=== PATIENT | male | born 1970 | race Caucasian/White ===

== ENCOUNTER 2019-10-17 07:10 | Outpatient (CLI) | payer OTHER, SELFPAY ==
[2019-10-17 07:40] LABS: Basophils Absolute Auto 0.1 K/mm3 (0.0-0.1); Basophils Percent Auto 0.8 % (0.2-1.2); Eosinophils Absolute Auto 0.3 K/mm3 (0-0.3); Eosinophils Percent Auto 3.7 % (0-4.4); Hematocrit 43.8 % (42.0-52.0); Hemoglobin 15.4 g/dL (14.0-18.0); Immature Granulocyte Absolute 0.06 K/mm3 (0.00-0.031); Immature Granulocyte Percent A 0.7 % (0-0.5); Lymphocytes Absolute Auto 2.06 K/mm3 (0.9-3.2); Lymphocytes Percent Auto 23.3 % (18.3-44.2); Mean Corpuscular HGB Conc 35.2 g/dl (32-36); Mean Corpuscular Hemoglobin 32.6 pg (26-34); Mean Corpuscular Volume 92.6 fl (80-100); Mean Platelet Volume 9.3 fl (7.4-10.4); Monocytes Absolute Auto 0.8 K/mm3 (0.1-0.6); Monocytes Percent Auto 8.7 % (2.6-8.5); Neutrophils Absolute Auto 5.6 K/mm3 (1.3-6.7); Neutrophils Percent Auto 62.8 % (45.5-73.1); Platelet Count Result 238 k/mm3 (150-375); Red Blood Count 4.73 M/mm3 (4.6-6.20); Red Cell Distribution Width 13.2 % (11.5-14.5); White Blood Count 8.9 K/mm3 (4.5-10.0)
[2019-10-17 07:55] LABS: Hemoglobin A1C 5.6 % (<5.7)
[2019-10-17 07:56] LABS: Cholesterol 204 mg/dL (0-200); HDL Direct 53 mg/dL; Triglycerides 220 mg/dL (<150)
[2019-10-17 08:07] LABS: LDL Cholesterol Direct 113 mg/dL
== END 2019-10-17 07:11 | disposition home or self-care (01) ==
PROVIDERS: PCP Family Medicine; Visit Provider Family Medicine
DX: R73.09 Other abnormal glucose (principal); E78.2 Mixed hyperlipidemia; I10 Essential (primary) hypertension; F33.2 Major depressive disorder, recurrent severe without psychotic features; F41.1 Generalized anxiety disorder
CPT/HCPCS: 36415; 80061; 83036; 84443; 85025

== ENCOUNTER 2020-09-05 07:15 | Outpatient (CLI) | payer OTHER, SELFPAY ==
[2020-09-05 12:17] LABS: Alanine Aminotransferase 27 U/L (4-50); Alkaline Phosphatase 69 U/L (38-126); Anion Gap 10 mmol/L (8-16); Aspartate Amino Transferase 23 U/L (17-59); Bilirubin,Total 0.4 mg/dL (0.2-1.3); Blood Urea Nitrogen 15 mg/dL (9-20); Calcium 9.8 mg/dL (8.4-10.2); Carbon Dioxide 24 mmol/L (22-30); Chloride 104 mmol/L (98-107); Cholesterol 210 mg/dL (0-200); Estimated Glomerular Filt Rate > 60; Glucose 129 mg/dL (65-110); HDL Direct 42 mg/dL; Potassium 4.4 mmol/L (3.4-5.0); Sodium 138 mmol/L (137-145); Triglycerides 198 mg/dL (<150)
[2020-09-05 12:28] LABS: LDL Cholesterol Direct 113 mg/dL
== END 2020-09-05 07:16 | disposition home or self-care (01) ==
PROVIDERS: PCP Family Medicine; Visit Provider Family Medicine
DX: E78.2 Mixed hyperlipidemia (principal); I10 Essential (primary) hypertension
CPT/HCPCS: 36415; 80053; 80061

== ENCOUNTER 2020-10-14 00:33 | Day surgery (SDC) | payer OTHER, SELFPAY ==
[2020-10-11 11:06] VITALS: BMI 34.2
[2020-10-14 06:46] VITALS: BP 129/88; PULSE 79; RESP 18; TEMP 36.2; O2SAT 95; BMI 33.3
[2020-10-14] MEDS: LACTATED RINGERS 1,000 ML 150 ML IV CONT (06:52)
--- NOTE | 2020-10-14 07:58 | WPDANESEPPF ---
Anes - Initial Pre Proc Eval Procedure: Operation Date: 10/14/20 08:00 Proposed Procedures p Screening Colonoscopy - Shankar Blue MD Date/Time: 10/14/20 07:58 Surgeon: Shankar Blue MD Pre Op Diagnosis: neoplasm screening Patient Data Age: 50 Gender: M Height: 1.7 m Weight: 96.7 kg Last Vital Signs Temp 97.1 F L 10/14/20 06:46 Pulse 79 10/14/20 06:46 Resp 18 10/14/20 06:46 BP 129/88 10/14/20 06:46 Pulse Ox 95 10/14/20 06:46 Allergies Allergy/AdvReac Type Severity Reaction Status Date / Time No Known Allergies Allergy Verified 10/14/20 06:44 Home Medications Medication Instructions Recorded Confirmed Type clobetasol 0.05 % scalp solution 1 applic TOPICAL BID PRN 01/19/19 10/11/20 History hydrochlorothiazide 12.5 mg tablet 12.5 mg PO DAILY #90 tablet 10/06/20 10/11/20 Rx lisinopril 20 mg tablet 20 mg PO DAILY #90 tablet 10/06/20 10/11/20 Rx rosuvastatin 10 mg tablet 10 mg PO DAILY #30 tablet 10/06/20 10/11/20 Rx Patient hx anesthesia problems: none Family hx anesthesia problems: none PMFSH Past Medical History Medical History Alcohol abuse Benign essential HTN Closed fracture of forearm with routine healing Episodic tobacco abuse Fracture of face bones due to fall with routine healing Fracture of phalanx of right thumb with routine healing ALBERTO (generalized anxiety disorder) Major depressive disorder, recurrent severe without psychotic features Mixed hyperlipidemia Tobacco abuse Family History Family History Mother Family history of kidney disease Family history of chronic obstructive pulmonary disease Family history of diabetes mellitus in first degree relative Father Family history of lung cancer Other Diabetes mellitus Hypertension Social History Social History (Updated 10/06/20 @ 16:27 by Sonia Mckee) Social History: Smoking packs per day: 0.5 Smoking cigarettes per day: 10.0 Years smoked: 30 Smoking pack-years: 15.00 Smoking status: Current every day smoker Tobacco type: cigarettes Second hand tobacco smoke exposure: No Alcohol intake: current Drinks per week: 24 Substance use: never Substance use type: does not use Living arrangements: with family Gender identity (if verbalized by the patient): Male Sexual Orientation (if Verbalized by the Patient): Straight or Heterosexual Spiritual care concerns: No Anes - Eval Final PreProcedure Day of Procedure 10/14/20 07:58 Patient weight: obese Heart: regular rate and rhythm Lungs: clear to auscultation Airway: Mallampati scale class II Neurological: alert and oriented Last oral intake: >/= 8 hours ASA classification: III Emergent: no Anesthetic plan: proceed Anesthesia type and monitoring: general GIVS and standard monitoring Informed Consent: The patient's anesthetic plan and its attendant risks and benefits were discussed with the patient/family/POA. Questions were solicited and answers provided to the satisfaction of the patient/family/POA.
--- NOTE | 2020-10-14 07:58 | PM.HPGS ---
History of Present Illness History of Present Illness Consent: Risks, benefits, and alternatives have been discussed and questions answered. Patient agrees to proceed with procedure. Chief complaint: neoplasm screening Narrative: Tulio Etienne is a 50 year old male here for first screening colonoscopy Review of Systems Constitutional: Constitutional: Denies headache(s) and Denies weakness Eyes: Eyes: Denies blurry vision ENT: Reports Normal hearing present, Denies headache(s) and Denies neck pain Cardiovascular: Cardiovascular: Denies chest pain and Denies dyspnea Respiratory: Respiratory: Denies dyspnea Gastrointestinal: Gastrointestinal: Reports no additional gastrointestinal complaints Genitourinary: Genitourinary: Denies dysuria Musculoskeletal: Musculoskeletal: Denies neck pain Integumentary/Breasts: Skin/Breast: Denies dry skin Neurologic: Reports Normal hearing present, Denies headache(s) and Denies weakness Psychiatric: Psychiatric: Denies anxiety Endocrine: Endocrine: Denies change in body appearance Hematologic/Lymphatic: Hematologic/Lymphatic: Denies easy bleeding Allergic/Immunologic: Allergic/Immunologic: Denies urticaria PMFSH Past Medical History Medical History Alcohol abuse Benign essential HTN Closed fracture of forearm with routine healing Episodic tobacco abuse Fracture of face bones due to fall with routine healing Fracture of phalanx of right thumb with routine healing ALBERTO (generalized anxiety disorder) Major depressive disorder, recurrent severe without psychotic features Mixed hyperlipidemia Tobacco abuse Family History Family History Mother Family history of kidney disease Family history of chronic obstructive pulmonary disease Family history of diabetes mellitus in first degree relative Father Family history of lung cancer Other Diabetes mellitus Hypertension Social History Social History (Updated 10/06/20 @ 16:27 by Sonia Mckee) Social History: Smoking packs per day: 0.5 Smoking cigarettes per day: 10.0 Years smoked: 30 Smoking pack-years: 15.00 Smoking status: Current every day smoker Tobacco type: cigarettes Second hand tobacco smoke exposure: No Alcohol intake: current Drinks per week: 24 Substance use: never Substance use type: does not use Living arrangements: with family Gender identity (if verbalized by the patient): Male Sexual Orientation (if Verbalized by the Patient): Straight or Heterosexual Spiritual care concerns: No Meds Home Medications and Allergies Home Medications Medication Instructions Recorded Confirmed Type clobetasol 0.05 % scalp solution 1 applic TOPICAL BID PRN 01/19/19 10/11/20 History hydrochlorothiazide 12.5 mg tablet 12.5 mg PO DAILY #90 tablet 10/06/20 10/11/20 Rx lisinopril 20 mg tablet 20 mg PO DAILY #90 tablet 10/06/20 10/11/20 Rx rosuvastatin 10 mg tablet 10 mg PO DAILY #30 tablet 10/06/20 10/11/20 Rx Allergies Allergy/AdvReac Type Severity Reaction Status Date / Time No Known Allergies Allergy Verified 10/14/20 06:44 Vital Signs Vital Signs - 24 hr 10/14/20 06:46 Temperature 97.1 F L Pulse Rate 79 Respiratory Rate 18 Blood Pressure 129/88 Pulse Oximetry 95 Exam Const: General: comfortable and no acute distress HENMT: General nose exam: Normal nares present Eyes: General: appearance normal, both eyes and all related structures Neck: Neck: no JVD Resp: Auscultation: clear to auscultation bilaterally Cardio: Rate: regular rate Rhythm: regular rhythm GI: Inspection: non-distended GI Palp: Yes Soft to palpation Skin: General skin exam: normal color Neuro: General: gait normal Speech: normal speech Extrem: General: normal to inspection Psych: Mental Status: mental status grossly normal Assessment and Plan Assessment
[2020-10-14 08:32] VITALS: BP 85/54; PULSE 59; RESP 17; O2SAT 93
[2020-10-14 08:42] VITALS: BP 89/54; PULSE 55; RESP 20; O2SAT 95
[2020-10-14 08:52] VITALS: BP 140/90; PULSE 53; RESP 24; O2SAT 98
[2020-10-14 09:00] VITALS: BP 119/73
== END 2020-10-14 09:10 | disposition home or self-care (01) ==
PROVIDERS: PCP Family Medicine; Visit Provider Internal Medicine Gastroenterology
PROC: 0DJD8ZZ Inspection of Lower Intestinal Tract, Via Natural or Artificial Opening Endoscopic (ICD-10-PCS; CPT 45378; principal; 2020-10-14 08:00)
DX: Z12.11 Encounter for screening for malignant neoplasm of colon (principal); D12.5 Benign neoplasm of sigmoid colon; D12.3 Benign neoplasm of transverse colon; K63.5 Polyp of colon; K57.30 Diverticulosis of large intestine without perforation or abscess without bleeding; K64.8 Other hemorrhoids; I10 Essential (primary) hypertension; E78.2 Mixed hyperlipidemia; F10.10 Alcohol abuse, uncomplicated; F17.210 Nicotine dependence, cigarettes, uncomplicated; F41.1 Generalized anxiety disorder; F32.9 Major depressive disorder, single episode, unspecified
CPT/HCPCS: 45385; 45381; 88305; J2704; J7120

== ENCOUNTER 2021-04-26 07:22 | Outpatient (CLI) | payer OTHER, SELFPAY ==
[2021-04-26 07:44] LABS: Basophils Absolute Auto 0.1 K/mm3 (0.0-0.1); Basophils Percent Auto 0.9 % (0.2-1.2); Eosinophils Absolute Auto 0.4 K/mm3 (0-0.3); Eosinophils Percent Auto 3.7 % (0-4.4); Hematocrit 42.9 % (42.0-52.0); Hemoglobin 14.9 g/dL (14.0-18.0); Lymphocytes Absolute Auto 2.99 K/mm3 (0.9-3.2); Lymphocytes Percent Auto 30.1 % (18.3-44.2); Mean Corpuscular HGB Conc 34.7 g/dl (32-36); Mean Corpuscular Hemoglobin 32.4 pg (26-34); Mean Corpuscular Volume 93.3 fl (80-100); Monocytes Absolute Auto 0.9 K/mm3 (0.1-0.6); Monocytes Percent Auto 8.8 % (2.6-8.5); Neutrophils Absolute Auto 5.5 K/mm3 (1.3-6.7); Neutrophils Percent Auto 55.5 % (45.5-73.1); Platelet Count Result 249 k/mm3 (150-375); Red Cell Distribution Width 13.1 % (11.5-14.5); White Blood Count 9.9 K/mm3 (4.5-10.0)
[2021-04-26 08:06] LABS: LDL Cholesterol Direct 117 mg/dL
[2021-04-26 08:26] LABS: Prostate Specific Antigen 1.2 ng/mL (< OR = 4.0)
[2021-04-26 08:30] LABS: Alanine Aminotransferase 30 U/L (4-50); Albumin Level 4.4 g/dL (3.5-5.1); Alkaline Phosphatase 74 U/L (38-126); Anion Gap 8 mmol/L (8-16); Aspartate Amino Transferase 28 U/L (17-59); Bilirubin,Total 0.4 mg/dL (0.2-1.3); Blood Urea Nitrogen 13 mg/dL (9-20); Calcium 8.9 mg/dL (8.4-10.2); Carbon Dioxide 24 mmol/L (22-30); Chloride 104 mmol/L (98-107); Cholesterol 247 mg/dL (0-200); Estimated Glomerular Filt Rate > 60; Glucose 152 mg/dL (65-110); Potassium 4.8 mmol/L (3.4-5.0); Sodium 136 mmol/L (137-145)
[2021-04-26 08:40] LABS: Triglycerides 638 mg/dL (<150)
== END 2021-04-26 07:23 | disposition home or self-care (01) ==
PROVIDERS: PCP Family Medicine; Visit Provider Nurse Practitioner Gerontology
DX: E78.2 Mixed hyperlipidemia (principal); I10 Essential (primary) hypertension; Z12.5 Encounter for screening for malignant neoplasm of prostate
CPT/HCPCS: 36415; 80053; 80061; 84153; 85025; G0103

== ENCOUNTER 2021-10-16 15:15 | Emergency (ER) | payer OTHER, SELFPAY ==
--- NOTE | 2021-10-16 15:17 | ED.EXTPRO ---
HPI - Extremity Problem General Chief complaint: Extremity Problem,Nontraumatic Stated complaint: swollen rt arm Time Seen by Provider: 10/16/21 15:17 Source: patient Mode of arrival: ambulatory Limitations: no limitations History of Present Illness HPI Narrative: Mr. Hart is a 51-year-old male patient presenting to the clinic today with complaints of right arm swelling x1 day. He reports that he was doing some ceiling finishing and a board fell down with 2 nails in it and stabbed his left forearm. He has 2 puncture wounds to the left forearm that are scabbed over and has surrounding redness and swelling to these areas. Last tetanus shot was in 2012 Related Data Home Medications Medication Instructions Recorded Confirmed rosuvastatin 10 mg tablet 10 mg PO DAILY 10/16/21 10/16/21 Allergies Allergy/AdvReac Type Severity Reaction Status Date / Time No Known Allergies Allergy Verified 10/16/21 15:19 Review of Systems Review of Systems: Pertinent positives per HPI. Patient denies any fever, chills, rash, headache, visual changes, dizziness, cough, runny nose, sore throat, shortness of breath, chest pain, palpitations, nausea, vomiting, diarrhea, constipation, abdominal pain, or any urinary issues. [facility] Past Medical History Medical History (Updated 10/16/21 @ 15:31 by Garrick Kelsey APRN) Alcohol abuse Benign essential HTN Closed fracture of forearm with routine healing Episodic tobacco abuse Fracture of face bones due to fall with routine healing Fracture of phalanx of right thumb with routine healing ALBERTO (generalized anxiety disorder) Major depressive disorder, recurrent severe without psychotic features Mixed hyperlipidemia Tobacco abuse Family History Family History Mother Family history of kidney disease Family history of chronic obstructive pulmonary disease Family history of diabetes mellitus in first degree relative Father Family history of lung cancer Other Diabetes mellitus Hypertension Social History Social History Social History: Smoking packs per day: 0.25 Smoking cigarettes per day: 5.0 Years smoked: 30 Smoking pack-years: 7.50 Smoking status: Current every day smoker Tobacco type: cigarettes Second hand tobacco smoke exposure: No Alcohol intake: current Drinks per week: 6 Substance use: never Substance use type: does not use Gender identity (if verbalized by the patient): Male Sexual Orientation (if Verbalized by the Patient): Straight or Heterosexual Spiritual care concerns: No Comments At the time of my signature, I reviewed and agree with the nursing past medical, surgical, social, and family history. There is no relevant family history pertinent to the patient complaint. Exam Narrative: General: Well-developed, well nourished, in no apparent distress Head: Normocephalic, atraumatic. Cardio: Regular rate and rhythm, s1 and s2 normal, no murmur appreciated. Resp: Diminished lung sounds in the bases otherwise clear to auscultation bilaterally, no rhonchi, rales, wheezing or rubs. Integumentary: [place], warm, and dry, 2 scabbed over infected puncture wounds to the right lateral forearm with redness and swelling without palpable abscess. No drainage noted Course Course Emergency Course: Portions of this record may have been created with voice recognition software. Level of Care: Express Care Visit Vital Signs Vital signs: Vital signs reviewed MDM - Extremity (Nontraumatic) MDM Narrative Medical decision making narrative: At the time of visit patient is resting comfortably on the exam table. Patient has 2 infected puncture wounds to the right forearm. Prescription for doxycycline sent to the pharmacy and tetanus was updated in the clinic today. Supportive measures were discussed with the patient he
[2021-10-16 15:26] VITALS: BP 136/105; PULSE 90; RESP 18; TEMP 36.7; O2SAT 97
[2021-10-16] MEDS: TETANUS,DIPHTHERIA,AC PERTUSSIS ADULT (0.5 ML) BOOSTRIX IM (15:36)
== END 2021-10-16 15:38 | disposition home or self-care (01) ==
PROVIDERS: Emergency Provider Nurse Practitioner Family; PCP Family Medicine
DX: S51.832A Puncture wound without foreign body of left forearm, initial encounter (principal); L08.9 Local infection of the skin and subcutaneous tissue, unspecified; W45.0XXA Nail entering through skin, initial encounter; Z23 Encounter for immunization; F17.210 Nicotine dependence, cigarettes, uncomplicated; I10 Essential (primary) hypertension; E78.2 Mixed hyperlipidemia
CPT/HCPCS: 90471; 90715; 99213; G0463

== ENCOUNTER 2022-06-09 07:19 | Outpatient (CLI) | payer OTHER, SELFPAY ==
[2022-06-09 08:00] LABS: Basophils Absolute Auto 0.1 K/mm3 (0.0-0.1); Basophils Percent Auto 0.9 % (0.2-1.2); Eosinophils Absolute Auto 0.3 K/mm3 (0-0.3); Eosinophils Percent Auto 3.8 % (0-4.4); Hemoglobin 14.1 g/dL (14.0-18.0); Immature Granulocyte Absolute 0.06 K/mm3 (0.00-0.031); Immature Granulocyte Percent A 0.8 % (0-0.5); Lymphocytes Absolute Auto 2.39 K/mm3 (0.9-3.2); Lymphocytes Percent Auto 30.4 % (18.3-44.2); Mean Corpuscular HGB Conc 33.6 g/dl (32-36); Mean Corpuscular Hemoglobin 30.7 pg (26-34); Mean Corpuscular Volume 91.5 fl (80-100); Mean Platelet Volume 9.9 fl (7.4-10.4); Monocytes Absolute Auto 0.6 K/mm3 (0.1-0.6); Monocytes Percent Auto 8.1 % (2.6-8.5); Neutrophils Absolute Auto 4.4 K/mm3 (1.3-6.7); Platelet Count Result 234 k/mm3 (150-375); Red Blood Count 4.59 M/mm3 (4.6-6.20); Red Cell Distribution Width 13.1 % (11.5-14.5); White Blood Count 7.9 K/mm3 (4.5-10.0)
[2022-06-09 08:13] LABS: Alanine Aminotransferase 37 U/L (6-50); Albumin Level 4.6 g/dL (3.5-5.1); Alkaline Phosphatase 63 U/L (38-126); Anion Gap 8 mmol/L (8-16); Aspartate Amino Transferase 26 U/L (17-59); Bilirubin,Total 0.5 mg/dL (0.2-1.3); Blood Urea Nitrogen 13 mg/dL (9-20); Calcium 9.4 mg/dL (8.4-10.2); Carbon Dioxide 26 mmol/L (22-30); Chloride 102 mmol/L (98-107); Cholesterol 206 mg/dL (0-200); Estimated Glomerular Filt Rate > 60; Glucose 157 mg/dL (65-110); Potassium 4.4 mmol/L (3.4-5.0); Sodium 136 mmol/L (137-145)
[2022-06-09 08:22] LABS: LDL Cholesterol Direct 87 mg/dL
[2022-06-09 08:44] LABS: Triglycerides 606 mg/dL (<150)
== END 2022-06-09 07:20 | disposition home or self-care (01) ==
LOC: ANHLAB 07:20
PROVIDERS: PCP Family Medicine; Visit Provider Nurse Practitioner Gerontology
DX: E78.2 Mixed hyperlipidemia (principal); I10 Essential (primary) hypertension
CPT/HCPCS: 36415; 80053; 80061; 83036; 85025

== ENCOUNTER 2022-09-22 07:08 | Outpatient (CLI) | payer OTHER, SELFPAY ==
[2022-09-22 08:38] LABS: Hemoglobin A1C 7.3 % (<5.7)
== END 2022-09-22 07:09 | disposition home or self-care (01) ==
LOC: ANHLAB 07:09
PROVIDERS: PCP Family Medicine; Visit Provider Physician Assistant
DX: E11.9 Type 2 diabetes mellitus without complications (principal)
CPT/HCPCS: 36415; 83036

== ENCOUNTER 2022-10-19 16:53 | Emergency (ER) | payer OTHER, SELFPAY ==
[2022-10-19 17:03] VITALS: BP 141/90; PULSE 95; RESP 18; TEMP 37; O2SAT 97
--- NOTE | 2022-10-19 17:03 | ED.GENADULT ---
HPI - General Adult General Chief complaint: Eye Problems Stated complaint: RT Eye Irritation Time Seen by Provider: 10/19/22 17:03 Source: patient, RN notes reviewed and old records reviewed Mode of arrival: ambulatory Limitations: no limitations History of Present Illness HPI narrative: 52-year-old male presents to the [facility] with complaints of right lower eyelid irritation for approximately 1 week. States that he was not tested floor last week. Develops on Saturday some itching and some inflammation. No treatment prior to arrival. Denies any trauma. Denies any discharge. No crusting. Denies any change in vision Onset (ago): week(s) (1) Related Data Allergies Allergy/AdvReac Type Severity Reaction Status Date / Time No Known Allergies Allergy Verified 10/19/22 17:00 Review of Systems Review of Systems: All systems reviewed & are unremarkable except as noted in HPI and below Constitutional: Constitutional: Reports no additional constitutional complaints Eyes: Eyes: Reports as per HPI ENT: Reports system reviewed and no additional complaints, except as documented Cardiovascular: Cardiovascular: Reports no additional cardiovascular complaints, Denies chest pain and Denies dyspnea Respiratory: Respiratory: Reports no additional respiratory complaints, Denies chest congestion, Denies cough and Denies dyspnea Gastrointestinal: Gastrointestinal: Reports no additional gastrointestinal complaints, Denies abdominal pain, Denies nausea and Denies vomiting Musculoskeletal: Musculoskeletal: Reports no additional musculoskeletal complaints Integumentary/Breasts: Skin/Breast: Reports system reviewed and no additional complaints, except as docu Neurologic: Reports system reviewed and no additional complaints, except as documented Psychiatric: Psychiatric: Reports no additional psychiatric complaints Allergic/Immunologic: Allergic/Immunologic: Reports no additional allergic/immunologic complaints [facility] Past Medical History Medical History (Updated 10/20/22 @ 17:29 by Felisa Avitia APRN) Alcohol abuse Benign essential HTN Closed fracture of forearm with routine healing Episodic tobacco abuse Fracture of face bones due to fall with routine healing Fracture of phalanx of right thumb with routine healing ALBERTO (generalized anxiety disorder) Major depressive disorder, recurrent severe without psychotic features Mixed hyperlipidemia New onset type 2 diabetes mellitus Tobacco abuse Family History Family History Mother Family history of kidney disease Family history of chronic obstructive pulmonary disease Family history of diabetes mellitus in first degree relative Father Family history of lung cancer Other Diabetes mellitus Hypertension Social History Social History (Updated 09/27/22 @ 16:24 by Sonia Mckee) Social History: Smoking packs per day: 0.25 Smoking cigarettes per day: 5.0 Years smoked: 30 Smoking pack-years: 7.50 Smoking status: Former smoker Tobacco type: cigarettes Second hand tobacco smoke exposure: No Smoking end date: 07/28/22 Alcohol intake: current Drinks per week: 6 Substance use: never Substance use type: does not use Lack of Transportation: No Lack of Food: Never True Current Housing: I Have Housing Concerned About Future Housing: No Difficulty Paying Gas/Electric Bills: No Difficulty Paying for Meds: No Currently Unemployed: No Education: Decline to Answer Difficulty w/ Childcare or Family Care: No Living arrangements: with family Occupation/Education: occupation Gender identity (if verbalized by the patient): Male Sexual Orientation (if Verbalized by the Patient): Straight or Heterosexual Spiritual care concerns: No Comments At the time of my signature, I reviewed and agree with the nursing past medical, surgical, social, and family history. There is no rel
== END 2022-10-19 17:24 | disposition home or self-care (01) ==
PROVIDERS: Emergency Provider Nurse Practitioner; PCP Family Medicine
DX: H01.002 Unspecified blepharitis right lower eyelid (principal); Z87.891 Personal history of nicotine dependence; I10 Essential (primary) hypertension; E78.2 Mixed hyperlipidemia; E11.9 Type 2 diabetes mellitus without complications
CPT/HCPCS: 99213; G0463

== ENCOUNTER 2023-01-12 08:11 | Outpatient (CLI) | payer OTHER, SELFPAY ==
[2023-01-12 08:41] LABS: Basophils Absolute Auto 0.1 K/mm3 (0.0-0.1); Basophils Percent Auto 0.8 % (0.2-1.2); Eosinophils Absolute Auto 0.3 K/mm3 (0-0.3); Eosinophils Percent Auto 3.2 % (0-4.4); Hematocrit 45.8 % (42.0-52.0); Hemoglobin 15.3 g/dL (14.0-18.0); Immature Granulocyte Absolute 0.06 K/mm3 (0.00-0.031); Immature Granulocyte Percent A 0.7 % (0-0.5); Lymphocytes Absolute Auto 2.45 K/mm3 (0.9-3.2); Lymphocytes Percent Auto 27.6 % (18.3-44.2); Mean Corpuscular HGB Conc 33.4 g/dl (32-36); Mean Corpuscular Hemoglobin 30.8 pg (26-34); Mean Corpuscular Volume 92.3 fl (80-100); Monocytes Absolute Auto 0.7 K/mm3 (0.1-0.6); Monocytes Percent Auto 7.8 % (2.6-8.5); Neutrophils Absolute Auto 5.3 K/mm3 (1.3-6.7); Neutrophils Percent Auto 59.9 % (45.5-73.1); Platelet Count Result 237 k/mm3 (150-375); Red Blood Count 4.96 M/mm3 (4.6-6.20); Red Cell Distribution Width 13.1 % (11.5-14.5); White Blood Count 8.9 K/mm3 (4.5-10.0)
[2023-01-12 08:52] LABS: Alanine Aminotransferase 35 U/L (6-50); Albumin Level 4.7 g/dL (3.5-5.1); Alkaline Phosphatase 67 U/L (38-126); Anion Gap 12 mmol/L (8-16); Aspartate Amino Transferase 25 U/L (17-59); Bilirubin,Total 0.6 mg/dL (0.2-1.3); Blood Urea Nitrogen 16 mg/dL (9-20); Calcium 9.3 mg/dL (8.4-10.2); Carbon Dioxide 21 mmol/L (22-30); Chloride 104 mmol/L (98-107); Cholesterol 211 mg/dL (0-200); Estimated Glomerular Filt Rate > 60; Glucose 161 mg/dL (65-110); HDL Direct 38 mg/dL; Potassium 4.5 mmol/L (3.4-5.0); Sodium 137 mmol/L (137-145); Triglycerides 496 mg/dL (<150)
[2023-01-12 09:02] LABS: LDL Cholesterol Direct 87 mg/dL
[2023-01-12 09:42] LABS: Hemoglobin A1C 7.2 % (<5.7)
== END 2023-01-12 08:12 | disposition home or self-care (01) ==
PROVIDERS: PCP Family Medicine; Visit Provider Physician Assistant
DX: E11.9 Type 2 diabetes mellitus without complications (principal); E78.2 Mixed hyperlipidemia; I10 Essential (primary) hypertension
CPT/HCPCS: 36415; 80053; 80061; 83036; 85025

== ENCOUNTER 2023-05-17 00:16 | Day surgery (SDC) | payer OTHER, SELFPAY ==
[2023-05-09 11:26] VITALS: BMI 34.5
--- NOTE | 2023-05-15 14:19 | SUR.PREOP ---
Patient called regarding upcoming procedure. Reviewed preop instructions, appointment times, and procedure prep.
[2023-05-17 06:39] VITALS: BP 138/97; PULSE 90; RESP 18; TEMP 36.3; O2SAT 97
[2023-05-17] MEDS: LACTATED RINGERS 1,000 ML 150 ML IV CONT (06:40)
[2023-05-17 06:50] LABS: Glucose Point of Care 173 mg/dl (65-105)
--- NOTE | 2023-05-17 07:50 | PM.HPGS ---
History of Present Illness History of Present Illness Consent: Risks, benefits, and alternatives have been discussed and questions answered. Patient agrees to proceed with procedure. Chief complaint: hx colon polyps Narrative: Tulio Etienne is a 52 year old male with colon polyp in 2020 Review of Systems Review of Systems: All systems reviewed & are unremarkable except as noted in HPI and below PMFSH Past Medical History Medical History (Updated 05/17/23 @ 07:50 by Shankar Blue MD) Adenomatous colon polyp Alcohol abuse Benign essential HTN Closed fracture of forearm with routine healing Episodic tobacco abuse Fracture of face bones due to fall with routine healing Fracture of phalanx of right thumb with routine healing ALBERTO (generalized anxiety disorder) Major depressive disorder, recurrent severe without psychotic features Mixed hyperlipidemia New onset type 2 diabetes mellitus Tobacco abuse Family History Family History Mother Family history of kidney disease Family history of chronic obstructive pulmonary disease Family history of diabetes mellitus in first degree relative Father Family history of lung cancer Other Diabetes mellitus Hypertension Social History Social History (Updated 01/22/23 @ 08:02 by Sonia Mckee) Social History: Smoking packs per day: 0.25 Smoking cigarettes per day: 5.0 Years smoked: 30 Smoking pack-years: 7.50 Smoking status: Former smoker Tobacco type: cigarettes Second hand tobacco smoke exposure: No Smoking end date: 07/28/22 Alcohol intake: current Drinks per week: 6 Alcohol use details: occasional beer Substance use: never Substance use type: does not use Lack of Transportation: No Lack of Food: Never True Current Housing: I Have Housing Concerned About Future Housing: No Difficulty Paying Gas/Electric Bills: No Difficulty Paying for Meds: No Currently Unemployed: No Education: Master's Degree or Higher Difficulty w/ Childcare or Family Care: No Living arrangements: with family Occupation/Education: occupation Additional occupation/education comments: [employer] Gender identity (if verbalized by the patient): Male Sexual Orientation (if Verbalized by the Patient): Straight or Heterosexual Spiritual care concerns: No Meds Home Medications and Allergies Home Medications Medication Instructions Recorded Confirmed Type sildenafil 50 mg tablet (Viagra) 50 mg PO DAILY PRN sexual activity 03/05/22 05/09/23 Rx #10 tabs empagliflozin 25 mg tablet 25 mg PO DAILY #90 tabs 12/24/22 05/09/23 Rx (Jardiance) clobetasol 0.05 % scalp solution 1 applic topical BID PRN rash #50 02/22/23 05/09/23 Rx mL hydrochlorothiazide 12.5 mg tablet See Rx Instructions .Route 03/08/23 05/09/23 Rx .COMPLEX #90 tabs lisinopril 20 mg tablet See Rx Instructions .Route 03/08/23 05/09/23 Rx .COMPLEX #90 tabs metformin 500 mg tablet See Rx Instructions .Route 03/22/23 05/09/23 Rx .COMPLEX #180 tabs rosuvastatin 20 mg tablet See Rx Instructions .Route 04/05/23 05/09/23 Rx .COMPLEX #90 tabs Allergies Allergy/AdvReac Type Severity Reaction Status Date / Time No Known Allergies Allergy Verified 05/17/23 06:36 Vital Signs Vital Signs - 24 hr 05/17/23 06:39 Temperature 97.3 F L Pulse Rate 90 Respiratory Rate 18 Blood Pressure 138/97 H Pulse Oximetry 97 Oxygen Delivery Room Air Exam Const: General: comfortable and no acute distress HENMT: Face/Nose/Sinus: Normal nares present Eyes: General: appearance normal, both eyes and all related structures Neck: Neck: no JVD Resp: Auscultation: clear to auscultation bilaterally Cardio: Rate: regular rate Rhythm: regular rhythm GI: Inspection: non-distended GI Palp: Yes Soft to palpation Skin: General skin exam: normal color Neuro: General: gai
--- NOTE | 2023-05-17 08:03 | WPDANESEPPF ---
Anes - Initial Pre Proc Eval Procedure: Operation Date: 05/17/23 08:00 Proposed Procedures p Colonoscopy - Shankar Blue MD Date/Time: 05/17/23 08:03 Surgeon: Shankar Blue MD Pre Op Diagnosis: hx colon polyps Patient Data Age: 52 Gender: M Height: 1.7 m Weight: 99.9 kg Last Vital Signs Temp 97.3 F L 05/17/23 06:39 Pulse 90 05/17/23 06:39 Resp 18 05/17/23 06:39 BP 138/97 H 05/17/23 06:39 Pulse Ox 97 05/17/23 06:39 O2 Del Method Room Air 05/17/23 06:39 Allergies Allergy/AdvReac Type Severity Reaction Status Date / Time No Known Allergies Allergy Verified 05/17/23 06:36 Home Medications Medication Instructions Recorded Confirmed Type sildenafil 50 mg tablet (Viagra) 50 mg PO DAILY PRN sexual activity 03/05/22 05/09/23 Rx #10 tabs empagliflozin 25 mg tablet 25 mg PO DAILY #90 tabs 12/24/22 05/09/23 Rx (Jardiance) clobetasol 0.05 % scalp solution 1 applic topical BID PRN rash #50 02/22/23 05/09/23 Rx mL hydrochlorothiazide 12.5 mg tablet See Rx Instructions .Route 03/08/23 05/09/23 Rx .COMPLEX #90 tabs lisinopril 20 mg tablet See Rx Instructions .Route 03/08/23 05/09/23 Rx .COMPLEX #90 tabs metformin 500 mg tablet See Rx Instructions .Route 03/22/23 05/09/23 Rx .COMPLEX #180 tabs rosuvastatin 20 mg tablet See Rx Instructions .Route 04/05/23 05/09/23 Rx .COMPLEX #90 tabs Laboratory Tests 05/17/23 06:42 POC Capillary Glucose 173 H mg/dl (65-105) Patient hx anesthesia problems: none Family hx anesthesia problems: none Results Review: All pre-operative results and documents have been reviewed as part of the pre-operative evaluation. [facility] Past Medical History Medical History (Updated 05/17/23 @ 07:50 by Shankar Blue MD) Adenomatous colon polyp Alcohol abuse Benign essential HTN Closed fracture of forearm with routine healing Episodic tobacco abuse Fracture of face bones due to fall with routine healing Fracture of phalanx of right thumb with routine healing ALBERTO (generalized anxiety disorder) Major depressive disorder, recurrent severe without psychotic features Mixed hyperlipidemia New onset type 2 diabetes mellitus Tobacco abuse Family History Family History Mother Family history of kidney disease Family history of chronic obstructive pulmonary disease Family history of diabetes mellitus in first degree relative Father Family history of lung cancer Other Diabetes mellitus Hypertension Social History Social History (Updated 01/22/23 @ 08:02 by Sonia Mckee) Social History: Smoking packs per day: 0.25 Smoking cigarettes per day: 5.0 Years smoked: 30 Smoking pack-years: 7.50 Smoking status: Former smoker Tobacco type: cigarettes Second hand tobacco smoke exposure: No Smoking end date: 07/28/22 Alcohol intake: current Drinks per week: 6 Alcohol use details: occasional beer Substance use: never Substance use type: does not use Lack of Transportation: No Lack of Food: Never True Current Housing: I Have Housing Concerned About Future Housing: No Difficulty Paying Gas/Electric Bills: No Difficulty Paying for Meds: No Currently Unemployed: No Education: Master's Degree or Higher Difficulty w/ Childcare or Family Care: No Living arrangements: with family Occupation/Education: occupation Additional occupation/education comments: [employer] Gender identity (if verbalized by the patient): Male Sexual Orientation (if Verbalized by the Patient): Straight or Heterosexual Spiritual care concerns: No Anes - Eval Final PreProcedure Day of Procedure 05/17/23 08:03 Patient weight: obese Heart: regular rate and rhythm Lungs: clear to auscultation Airway: Mallampati scale class II Neurological: alert and oriented Last oral intake: >/= 8 bebo
[2023-05-17 08:22] VITALS: BP 131/74; PULSE 74; RESP 18; O2SAT 96
[2023-05-17 08:32] VITALS: BP 112/89; PULSE 82; RESP 21; O2SAT 97
[2023-05-17 08:41] VITALS: BP 122/75; PULSE 68; RESP 22; O2SAT 97
== END 2023-05-17 08:46 | disposition home or self-care (01) ==
PROVIDERS: PCP Family Medicine; Visit Provider Internal Medicine Gastroenterology
PROC: 0DJD8ZZ Inspection of Lower Intestinal Tract, Via Natural or Artificial Opening Endoscopic (ICD-10-PCS; CPT 45378; principal; 2023-05-17 08:00)
DX: Z12.11 Encounter for screening for malignant neoplasm of colon (principal); K63.5 Polyp of colon; K57.30 Diverticulosis of large intestine without perforation or abscess without bleeding; I10 Essential (primary) hypertension; E11.9 Type 2 diabetes mellitus without complications; E78.2 Mixed hyperlipidemia; F33.2 Major depressive disorder, recurrent severe without psychotic features; F41.1 Generalized anxiety disorder; Z87.891 Personal history of nicotine dependence; Z79.84 Long term (current) use of oral hypoglycemic drugs; E66.9 Obesity, unspecified; Z68.34 Body mass index [BMI] 34.0-34.9, adult
CPT/HCPCS: 45385; 82948; 88305; J2704; J7120

== ENCOUNTER 2023-11-16 07:06 | Outpatient (CLI) | payer OTHER, SELFPAY ==
[2023-11-16 07:22] LABS: Basophils Absolute Auto 0.1 K/mm3 (0.0-0.1); Basophils Percent Auto 0.7 % (0.2-1.2); Eosinophils Absolute Auto 0.3 K/mm3 (0-0.3); Eosinophils Percent Auto 3.6 % (0-4.4); Hematocrit 45.3 % (42.0-52.0); Hemoglobin 15.2 g/dL (14.0-18.0); Immature Granulocyte Absolute 0.05 K/mm3 (0.00-0.031); Immature Granulocyte Percent A 0.6 % (0-0.5); Lymphocytes Absolute Auto 2.24 K/mm3 (0.9-3.2); Lymphocytes Percent Auto 27.5 % (18.3-44.2); Mean Corpuscular HGB Conc 33.6 g/dl (32-36); Mean Corpuscular Hemoglobin 31.1 pg (26-34); Mean Corpuscular Volume 92.8 fl (80-100); Mean Platelet Volume 9.7 fl (7.4-10.4); Monocytes Absolute Auto 0.7 K/mm3 (0.1-0.6); Neutrophils Absolute Auto 4.9 K/mm3 (1.3-6.7); Neutrophils Percent Auto 59.6 % (45.5-73.1); Platelet Count Result 201 k/mm3 (150-375); Red Blood Count 4.88 M/mm3 (4.6-6.20); Red Cell Distribution Width 13.7 % (11.5-14.5); White Blood Count 8.2 K/mm3 (4.5-10.0)
[2023-11-16 07:38] LABS: Alanine Aminotransferase 32 U/L (6-50); Albumin Level 4.5 g/dL (3.5-5.1); Alkaline Phosphatase 65 U/L (38-126); Anion Gap 8 mmol/L (4-12); Aspartate Amino Transferase 27 U/L (17-59); Bilirubin,Total 0.3 mg/dL (0.2-1.3); Blood Urea Nitrogen 16 mg/dL (9-20); Calcium 8.6 mg/dL (8.4-10.2); Carbon Dioxide 26 mmol/L (22-30); Chloride 105 mmol/L (98-107); Cholesterol 169 mg/dL (0-200); Estimated Glomerular Filt Rate > 60; Glucose 140 mg/dL (65-110); HDL Direct 42 mg/dL; Potassium 4.3 mmol/L (3.4-5.0); Sodium 139 mmol/L (137-145); Triglycerides 423 mg/dL (<150)
[2023-11-16 07:49] LABS: Hemoglobin A1C 6.8 % (<5.7); LDL Cholesterol Direct 63 mg/dL
== END 2023-11-16 07:07 | disposition home or self-care (01) ==
LOC: ANHLAB 07:08
PROVIDERS: PCP Family Medicine; Visit Provider Physician Assistant
DX: E11.9 Type 2 diabetes mellitus without complications (principal); I10 Essential (primary) hypertension; E78.2 Mixed hyperlipidemia; Z72.0 Tobacco use
CPT/HCPCS: 36415; 80053; 80061; 83036; 85025

== ENCOUNTER 2023-12-07 12:49 | Emergency (ER) | payer OTHER, SELFPAY ==
[2023-12-07 13:00] VITALS: BP 165/92; PULSE 98; RESP 18; TEMP 36.6; O2SAT 97
--- NOTE | 2023-12-07 13:36 | ED.GENADULT ---
HPI - General Adult General Chief complaint: Wound/Laceration Stated complaint: LT hand injury Time Seen by Provider: 12/07/23 13:37 Source: patient Mode of arrival: ambulatory Limitations: no limitations History of Present Illness HPI narrative: 53-year-old male patient presents the [facility] with complaints of injury to the left thumb today. 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 Patient states he was concerned because the bleeding would not stop and had continued to bleed for close to an hour prior to coming in. Patient's last tetanus shot was about a year ago. Denies any numbness or tingling to the tips of the fingers at this time. At the time of the provider evaluation the bleeding to the left thumb had stopped. Related Data Home Medications Medication Instructions Recorded Confirmed empagliflozin 25 mg tablet mg 12/07/23 12/07/23 (Jardiance) sildenafil 50 mg tablet (Viagra) 50 mg PO DAILY sexual activity 12/07/23 Allergies Allergy/AdvReac Type Severity Reaction Status Date / Time No Known Allergies Allergy Verified 12/07/23 13:17 Review of Systems Review of Systems: CONSTITUTIONAL: Denies fever, chills, or sweats. EYES: Denies visual changes, redness, or discharge. ENT: Denies rhinorrhea, congestion, sore throat, or otalgia. CARDIOVASCULAR: Denies chest pain, palpitations, or edema. RESPIRATORY: Denies cough or dyspnea. GASTROINTESTINAL: Denies abdominal pain, nausea, vomiting, or diarrhea. GENITOURINARY: Denies dysuria or hematuria. SKIN: Denies rash or itching. Positive cut to left thumb MUSCULOSKELETAL: Denies back pain, joint pain, or myalgia. NEUROLOGIC: Denies headache, numbness, or weakness. PSYCHIATRIC: Denies anxiety or depression. [facility] Past Medical History Medical History Adenomatous colon polyp Alcohol abuse Benign essential HTN Closed fracture of forearm with routine healing Episodic tobacco abuse Fracture of face bones due to fall with routine healing Fracture of phalanx of right thumb with routine healing ALBERTO (generalized anxiety disorder) Major depressive disorder, recurrent severe without psychotic features Mixed hyperlipidemia New onset type 2 diabetes mellitus Tobacco abuse Family History Family History Mother Family history of kidney disease Family history of chronic obstructive pulmonary disease Family history of diabetes mellitus in first degree relative Father Family history of lung cancer Other Diabetes mellitus Hypertension Social History Social History Social History: Smoking packs per day: 0.25 Smoking cigarettes per day: 5.0 Years smoked: 30 Smoking pack-years: 7.50 Smoking status: Former smoker Tobacco type: cigarettes Second hand tobacco smoke exposure: No Smoking end date: 07/28/22 Alcohol intake: current Drinks per week: 6 Alcohol use details: occasional beer Substance use: never Substance use type: does not use Lack of Transportation: No Lack of Food: Never True Current Housing: I Have Housing Concerned About Future Housing: No Difficulty Paying Gas/Electric Bills: No Difficulty Paying for Meds: No Currently Unemployed: No Education: Master's Degree or Higher Difficulty w/ Childcare or Family Care: No Living arrangements: with family Occupation/Education: occupation 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 There is no relevant family history pertinent to the presenting complaint. Exam Narrative: GENERAL: Well-appearing, well-nourished, and in no acute distress. HEAD: Normocephalic, atraumatic. EYES: PERRLA and EOMI. ENT: Nares clear, no rhinorrhea or epistaxis. Mucous membranes moist. NECK: Supple. No lymphadenopathy CHEST: Clear to auscultation. No respiratory distress. HEART: Regular rate and rhythm. No murmur heard. Normal peripheral pulses. ABDOMEN: Soft, nontender, nondistended, normal active bowel sounds. EXTREMITIES: Normal range of motion. No edema. SKIN: Warm, dry, no rash. patient has approximately less than 1 cm oval lesion noted to the tip of the left thumb. The bleeding is controlled at this time. No notice or tingling noted to the finger. Cap refills are less than 2 NEURO: No focal deficits. Alert and oriented x3. Course Course Level of Care: Express Care Visit Vital Signs Vital signs: Vital Signs Temperature 36.6 C 12/07/23 13:00 Pulse Rate 98 12/07/23 13:00 Respiratory Rate 18 12/07/23 13:00 Blood Pressure 165/92 H 12/07/23 13:00 Pulse Oximetry 97 12/07/23 13:00 Oxygen Delivery Room Air 12/07/23 13:00 Temperature 36.6 C 12/07/23 13:00 Pulse Rate 98 12/07/23 13:00 Respiratory Rate 18 12/07/23 13:00 Blood Pressure 165/92 H 12/07/23 13:00 Pulse Oximetry 97 12/07/23 13:00 Oxygen Delivery Room Air 12/07/23 13:00 vital signs reviewed. The patient has been informed that they may have pre-hypertension or Hypertension based on a BP reading in the department. I recommend that the patient call the primary care provider listed on their discharge instructions or a physician of their choice this week to arrange follow up for further evaluation of possible pre-hypertension or Hypertension Medical Decision Making MDM Narrative Medical decision making narrative: the bleeding had stopped by the time I had gotten in to see the patient. Patient states that he is ready to leave and does not think there is anything else to do. Discussed with him that his appear to be a small avulsion and were not able to do any kind of suturing or Steri-Strips. The wound was cleaned by the nurse. Antibiotic ointment and a Band-Aid was applied by the medical provider. Patient is up-to-date on tetanus. Discussed with patient signs and symptoms of infection and what to look for for re-evaluation. Patient verbalized understanding denies any other questions or concerns at this time. Differential Diagnosis Differential Diagnosis: Differential diagnosis: Abscess, cellulitis, hidradenitis, laceration, puncture wound. Vital Signs Vital Signs: Vital Signs Temperature 36.6 C 12/07/23 13:00 Pulse Rate 98 12/07/23 13:00 Respiratory Rate 18 12/07/23 13:00 Blood Pressure 165/92 H 12/07/23 13:00 Pulse Oximetry 97 12/07/23 13:00 Oxygen Delivery Room Air 12/07/23 13:00 Temperature 36.6 C 12/07/23 13:00 Pulse Rate 98 12/07/23 13:00 Respiratory Rate 18 12/07/23 13:00 Blood Pressure 165/92 H 12/07/23 13:00 Pulse Oximetry 97 12/07/23 13:00 Oxygen Delivery Room Air 12/07/23 13:00 Critical Care Time Critical Care Time Critical Care Time: No Discharge Plan Discharge Clinical Impression: Avulsion of skin of left thumb Qualifiers: Encounter type: initial encounter Qualified Code(s): S61.002A - Unspecified open wound of left thumb without damage to nail, initial encounter Patient Disposition: Home, Self-Care Condition: Stable Instructions: Antibiotic Form, Acute Wounds (ED) Additional Instructions: wash area with soap water, pat dry and apply antibiotic ointment and Band-Aid while it continues to heal. Watch for signs and symptoms of infection including increased redness, tenderness or yellow or green pus. If this occur please return to the Urgent Care, your primary doctor for re-evaluation. Prescriptions: No Action Jardiance 25 mg tablet sildenafil [Viagra] 50 mg tablet 50 mg PO DAILY Rx Instructions: take 1 tablet by oral route everyday as needed approximately 1 hour before sexual activity clobetasol 0.05 % solution 1 applic TOPICAL BID PRN (Reason: rash) Qty: 50 0RF rosuvastatin 20 mg tablet See Rx Instructions .ROUTE .COMPLEX Qty: 90 3RF Dose Instruction: TAKE 1 TABLET DAILY Rx Instructions: TAKE 1 TABLET DAILY lisinopril 20 mg tablet See Rx Instructions .ROUTE .COMPLEX Qty: 90 1RF Dose Instruction: TAKE 1 TABLET BY MOUTH DAILY Rx Instructions: TAKE 1 TABLET BY MOUTH DAILY hydrochlorothiazide 12.5 mg tablet See Rx Instructions .ROUTE .COMPLEX Qty: 90 1RF Dose Instruction: TAKE 1 TABLET BY MOUTH DAILY Rx Instructions: TAKE 1 TABLET BY MOUTH DAILY metformin 500 mg tablet See Rx Instructions .ROUTE .COMPLEX Qty: 180 1RF Dose Instruction: TAKE 1 TABLET TWICE A DAY Rx Instructions: TAKE 1 TABLET TWICE A DAY Follow-up/Referrals: Laxmi Golden MD [Primary Care Provider] - Time of Disposition: 13:43
== END 2023-12-07 13:46 | disposition home or self-care (01) ==
PROVIDERS: Emergency Provider Nurse Practitioner Family; PCP Family Medicine
DX: S61.002A Unspecified open wound of left thumb without damage to nail, initial encounter (principal); W27.4XXA Contact with kitchen utensil, initial encounter; Y93.G1 Activity, food preparation and clean up; Z87.891 Personal history of nicotine dependence; I10 Essential (primary) hypertension; E78.2 Mixed hyperlipidemia; E11.9 Type 2 diabetes mellitus without complications
CPT/HCPCS: 99212; G0463

== ENCOUNTER 2024-04-01 12:09 | Emergency (ER) | payer OTHER, SELFPAY ==
[2024-04-01 12:19] VITALS: BP 156/106; PULSE 77; RESP 16; TEMP 36.8; O2SAT 98
--- NOTE | 2024-04-01 12:46 | ED_ITS ---
HPI - Eye Problem General Chief complaint: Eye Problems Stated complaint: EYE IRRITATION Time Seen by Provider: 04/01/24 12:46 Source: patient Mode of arrival: ambulatory Limitations: no limitations History of Present Illness HPI Narrative: 53-year-old male presents with redness and swelling to right lower eyelid for 1 day. History of stye. Denies injury. No other complaints today. All systems reviewed and negative except as noted above. Related Data Home Medications ?Medication ?Instructions ?Recorded ?Confirmed ?Last Taken ?Type clobetasol 0.05 % scalp solution 1 applic topical BID rash 12/07/23 12/07/23 Unknown History empagliflozin 25 mg tablet 25 mg DIRECTED 12/07/23 12/07/23 Unknown History (Jardiance) sildenafil 50 mg tablet (Viagra) 50 mg PO DAILY sexual activity 12/07/23 12/07/23 Unknown History Allergies Allergy/AdvReac Type Severity Reaction Status Date / Time No Known Allergies Allergy Verified 04/01/24 12:52 Review of Systems Review of Systems: CONSTITUTIONAL: Denies fever, chills, or sweats. EYES: Denies visual changes, redness, or discharge. Reports redness and swelling to right lower eyelid with pain. ENT: Denies rhinorrhea, congestion, sore throat, or otalgia. CARDIOVASCULAR: Denies chest pain, palpitations, or edema. RESPIRATORY: Denies cough or dyspnea. GASTROINTESTINAL: Denies abdominal pain, nausea, vomiting, or diarrhea. GENITOURINARY: Denies dysuria or hematuria. SKIN: Denies rash or itching. MUSCULOSKELETAL: Denies back pain, joint pain, or myalgia. NEUROLOGIC: Denies headache, numbness, or weakness. PSYCHIATRIC: Denies anxiety or depression. All other systems reviewed are negative, except as documented in HPI. [facility] Past Medical History Medical History Adenomatous colon polyp Alcohol abuse Benign essential HTN Closed fracture of forearm with routine healing Episodic tobacco abuse Fracture of face bones due to fall with routine healing Fracture of phalanx of right thumb with routine healing ALBERTO (generalized anxiety disorder) Major depressive disorder, recurrent severe without psychotic features Mixed hyperlipidemia New onset type 2 diabetes mellitus Tobacco abuse Family History Family History Mother Family history of kidney disease Family history of chronic obstructive pulmonary disease Family history of diabetes mellitus in first degree relative Father Family history of lung cancer Other Diabetes mellitus Hypertension Social History Social History Social History: Smoking packs per day: 0.25 Smoking cigarettes per day: 5.0 Years smoked: 30 Smoking pack-years: 7.50 Smoking status: Former smoker Tobacco type: cigarettes Second hand tobacco smoke exposure: No Smoking end date: 07/28/22 Alcohol intake: current Drinks per week: 6 Alcohol use details: occasional beer Substance use: never Substance use type: does not use Lack of Transportation: No Lack of Food: Never True Current Housing: I Have Housing Concerned About Future Housing: No Difficulty Paying Gas/Electric Bills: No Difficulty Paying for Meds: No Currently Unemployed: No Education: Master's Degree or Higher Difficulty w/ Childcare or Family Care: No Living arrangements: with family Occupation/Education: occupation 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 There is no relevant family history pertinent to the presenting complaint. Exam Narrative: GENERAL: This is a well-nourished, well-developed patient, in no apparent distress. HEAD: normocephalic, atraumatic. EYES: PERRL. Sclera clear/white. Vision is grossly intact. Erythematous, swolle n pustule to internal aspect of right lower eyelid. Tender on palpation. EARS: External ears normal NOSE: External nose normal NECK: Neck supple, non-tender without lymphadenopathy, masses or thyromegaly. CARDIOVASCULAR: Regular rate and rhythm without murmurs, gallops, or rubs. RESPIRATORY: Clear to auscultation. Breath sounds equal bilaterally. No wheezes, rales, or rhonchi. SKIN: warm, Dry, intact with no suspicious lesions or rash, good texture and turgor. NEURO: awake, alert, and oriented to person, place and time. There were no obvious focal neurologic abnormalities. EXTREMITIES: No joint tenderness, effusion, or edema noted. Course Course Level of Care: Express Care Visit Vital Signs Vital signs: Vital Signs Temperature 36.8 C 04/01/24 12:19 Pulse Rate 77 04/01/24 12:19 Respiratory Rate 16 04/01/24 12:19 Blood Pressure 156/106 H 04/01/24 12:19 Pulse Oximetry 98 04/01/24 12:19 Temperature 36.8 C 04/01/24 12:19 Pulse Rate 77 04/01/24 12:19 Respiratory Rate 16 04/01/24 12:19 Blood Pressure 156/106 H 04/01/24 12:19 Pulse Oximetry 98 04/01/24 12:19 Reviewed MDM - Eye Problem MDM Narrative Medical decision making narrative: Will treat right lower eyelid stye with erythromycin ointment. Please be advised this is a medical document. It is intended for [id number] communication. It is written in medical language and may contain unfamiliar abbreviations or verbiage. Medical documents are intended to carry relevant information, facts as evident, and the clinical opinion of the practitioner at the time of the encounter. This report may have been done utilizing a voice recognition system. Attempts have been made to correct errors. However, there may be uncorrected grammatical, spelling, and recognition errors present. The file time of this note does not necessarily represent the time of service. Discharge Plan Discharge Clinical Impression: Internal hordeolum of right eye Patient Disposition: Home, Self-Care Condition: Stable Instructions: Antibiotic Form, Erythromycin (Into the eye), Stye (ED) Additional Instructions: Place antibiotic ointment as prescribed. Wash hands before and after placing ointment. Take ibuprofen or Tylenol every 6-8 hours as needed for pain. May apply a warm compress and gently massage for 10 minutes, 4 to 5 times a day. Follow-up with an management specialist if symptoms not improving. Patient Language: Irish Prescriptions: New erythromycin 5 mg/gram (0.5 %) ointment 1 applic RIGHT EYE QID 10 Days Qty: 3.5 0RF No Action Jardiance 25 mg tablet 25 mg DIRECTED sildenafil [Viagra] 50 mg tablet 50 mg PO DAILY Rx Instructions: take 1 tablet by oral route everyday as needed approximately 1 hour before sexual activity clobetasol 0.05 % solution 1 applic TOPICAL BID lisinopril 20 mg tablet See Rx Instructions .ROUTE .COMPLEX Qty: 90 1RF Dose Instruction: TAKE 1 TABLET BY MOUTH DAILY Rx Instructions: TAKE 1 TABLET BY MOUTH DAILY hydrochlorothiazide 12.5 mg tablet See Rx Instructions .ROUTE .COMPLEX Qty: 90 1RF Dose Instruction: TAKE 1 TABLET BY MOUTH DAILY Rx Instructions: TAKE 1 TABLET BY MOUTH DAILY metformin 500 mg tablet See Rx Instructions .ROUTE .COMPLEX Qty: 180 1RF Dose Instruction: TAKE 1 TABLET TWICE A DAY Rx Instructions: TAKE 1 TABLET TWICE A DAY rosuvastatin 20 mg tablet See Rx Instructions .ROUTE .COMPLEX Qty: 90 2RF Dose Instruction: TAKE 1 TABLET DAILY Rx Instructions: TAKE 1 TABLET DAILY Follow-up/Referrals: Sebastian Santiago MD [Primary Care Provider] - Time of Disposition: 12:51
== END 2024-04-01 12:58 | disposition home or self-care (01) ==
PROVIDERS: Emergency Provider Nurse Practitioner Family; PCP Family Medicine
DX: H00.022 Hordeolum internum right lower eyelid (principal); Z87.891 Personal history of nicotine dependence; I10 Essential (primary) hypertension; E78.2 Mixed hyperlipidemia; E11.9 Type 2 diabetes mellitus without complications; Z79.84 Long term (current) use of oral hypoglycemic drugs
CPT/HCPCS: 99213; G0463

== ENCOUNTER 2024-09-19 07:12 | Outpatient (CLI) | payer OTHER, SELFPAY ==
--- OUTSIDE RECORDS SUMMARY | 2024-09-19 07:16 | XMS_ITS | Clinical Summary ---
Author Organization [facility] Address [address] [place] [address] Care Team Providers Care Basket Hand Weaver Name Role Phone Laxmi Golden MD Primary Care Provider U francisco javieraildeena Source Comments [facility],non-owned Affiliates and Associated Physician Practices is amultiple site organization consisting of ambulatory clinics and hospital sitesin [place], [place], [place] and [place]. This disclosure is being madepursuant to the Care Everywhere program and may not contain all information available regarding this patient. Last updated 17.[facility] Allergies No known active allergies Medications * Be aware that medications may not be up to date on this document. Alwaysverify current medications with the patient. 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 Confusion 01/01/2019 Fall 01/01/2019 Closed fracture of left distal radius 01/01/2019 Closed fracture of sphenoid bone 01/01/2019 Closed fracture of left zygomatic arch 9 Fracture of orbital roof, le ft side, initial encounter for closed fracture 01/01/2019 Maxillary sinus fracture 01/01/2019 Alcohol withdrawal 01/01/2019 Fracture of phalanx of right thumb 01/01/2019 Fracture of proximal phalanx of right index fing er 01/01/2019 Immunizations Immunization Administration Dates Next Due TDAP (7yrs+) 01/01/2019 Family History Medical History Relation Name Comments Diabetes - Type 2 Father Relation Name Status Comments Father Mother Social History Tobacco Use Types Packs/Day Years Used Date Smoking Tobacco: Every Day Cigarettes 1 35.7 Started: 01/12/1989 Smokeless Tobacco: Never Tobacco Cessation:Ready to Q uit: Yes Alcohol Use Standard Drinks/Week Comments Yes 80 (1 standard drink = 0.6 oz pu re alcohol) last drank mid Dec 2018 Sex and Gender Information Value Date Recorded Sex Assigned at Not on file Legal Sex Male 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 Gender Identity Not on file Sexual Orientation Not on file Last Filed Vital Signs Vital Sign Reading Time Taken Comments Blood Pressure 124/77 02/09/2019 11:05 AM PHYSICIAN SUPPORT COORDINATOR Pulse 93 02/09/2019 11:05 AM PHYSICIAN SUPPORT COORDINATOR Temperature 37.4 C (99.3 F) 02/09/2019 11:05 AM PHYSICIAN SUPPORT COORDINATOR Respiratory Rate 20 02/09/2019 11:05 AM PHYSICIAN SUPPORT COORDINATOR Oxygen Saturation 94% 02/09/2019 11:05 AM PHYSICIAN SUPPORT COORDINATOR Inhaled Oxygen Concentration 98% 01/14/2019 1 2:34 PM PHYSICIAN SUPPORT COORDINATOR Weight 90.7 kg (200 lb) 02/24/2019 8:49 AM PHYSICIAN SUPPORT COORDINATOR Height 170.2 cm (5' 7) 02/24/2019 8:49 AM PHYSICIAN SUPPORT COORDINATOR Body Mass Index 31.32 02/24/2019 8:49 AM PHYSICIAN SUPPORT COORDINATOR Plan of Treatment Health Maintenance Due Date Last Done Comments COLOGUARD (AGES 45-75) - COLON CA SCREENING 1968 COLON MONITORING 1968 COLONOSCOPY - COLON CA SCREENING 1968 CT COLONOGRAPHY - COLON CA SCREENING 1968 Colorectal Cancer Screening 1968 FIT - COLON CA SCREENING 1968 FLEX SIG - COLON CA SCREENING 1968 LIPID TESTING 1968 HIV SCREENING 10/05/1983 HEPATITIS C SCREENING 09/30/1986 HEPATITIS B VACCINE (1 of 3 - 19+ 3-dose series) 10/05/1987 PNEUMOCOCCAL VACCINE 50+ (1 of 2 - PCV) 10/05/1987 ZOSTER VACCINE (1 of 2) 2018 SCREENING FOR DIABETES 01/07/2022 9, 01/06/2019, 01/05/2019, Additional history exists COVID-19 VACCINE ( season) 2023 DEPRESSION SCREENING 02/12/2024 INFLUENZA VACCINE (#1) 2024 DTAP/TDAP/TD VACCINES (2 - Td or Tdap) 01/01/2029 01/01/2019 HIB VACCINE Aged Out No longer eligi ble based on patient's age to complete this topic HPV VACCINE Aged Out No longer eligi ble based on patient's age to complete this topic MENINGOCOCCAL (Group B) VACCINE SHARED DECISION-MAKING Aged Out No longer eligible based on patient's age to complete this topic MENINGOCOCCAL GROUPS A/C/Y/W VACCINE Aged Out No longer eligible based on patient's age to complete this topic Medical Devices Implanted Type Area Shank Faker Device Identifier Shelf Expiration Date Model / Serial / Lot Screw 2.5mm 22mm 1.3mm Slf-Tap Pg Nlckg Implanted:Qty: 2 on 01/12/2019 by Daina Beavers MD at [facility] Left: Wrist [employer] [id number] / / Plate 4 Hl Lopro Fx Ang Wire W Head Rds Implanted:Qty: 1 on 01/12/2019 by Daina Beavers MD at [facility] Left: Wrist [employer] [id number] / / Peg Fx 2.5mm 22mm Ft Lck Screw Tmx Alps Implanted:Qty: 1 on 01/12/2019 by Daina Beavers MD at [facility] Left: Wrist [employer] [id number] / / Peg Fx 2.5mm 24mm Ft Lck Screw Tmx Alps Implanted:Qty: 2 on 01/12/2019 by Daina Beavers MD at [facility] Left: Wrist [employer] [id number] / / Peg Fx 2.5mm 28mm Ft Sm Bone Lck Screw Implanted:Qty: 1 on 01/12/2019 by Daina Beavers MD at [facility] Left: Wrist [employer] [id number] / / Peg Fx 2.5mm 24mm Rds Dist Volr Thrd Implanted:Qty: 1 on 01/12/2019 by Daina Beavers MD at [facility] Left: Wrist [employer] [id number] / / Screw 3.5mm 12mm Cortx Ti Nonster Dvr Implanted:Qty: 1 on 01/12/2019 by Daina Beavers MD at [facility] Left: Wrist [employer] [id number] / / Screw 3.5mm 14mm Cortx Ti Nonster Dvr Implanted:Qty: 1 on 01/12/2019 by Daina Beavers MD at [facility] Left: Wrist [employer] [id number] / / Wire K .045in 6in 2 Troc Pnt Smth Ss Fx Implanted:Qty: 2 on 01/14/2019 by Bon Morgan MD at [facility] Right: Thumb [employer] 10/30/2022 [id number] / / [id number] Explanted Type Area Shank Faker Device Identifier Shelf Expiration Date Model / Serial / Lot Wire K 1.6mm Ss Fx Nonster Explanted:Qty: 3 on 01/12/2019 by Daina Beavers MD at [facility] Left: Wrist [employer] [id number] / / Screw 2.5mm 24mm 1.3mm Slf-Tap Pg Nlckg Explanted:Qty: 1 on 01/12/2019 by Daina Beavers MD at [facility] Left: Wrist [employer] [id number] / / Procedures Procedure Name Priority Date/Time Associated Diagnosis Comments BASIC METABOLIC PANEL (CALCIUM TOTAL) AM Draw 01/07/2019 2:34 AM PHYSICIAN SUPPORT COORDINATOR from Last 3 Months or Most Recently Relevant to Health Maintenance Results * BASIC METABOLIC PANEL (CALCIUM TOTAL) (01/07/2019 2:34 AM PHYSICIAN SUPPORT COORDINATOR) BUN 10 7 - 26 mg/dL 01/07/2019 3:02 AM [facility] Creatinine 0.8 0.6 - 1.2 mg/dL 01/07/2019 3:02 AM [facility] Sodium 140 136 - 145 mmol/L 01/07/2019 3:02 AM [facility] Potassium 4.0 3.5 - 4.5 mmol/L 01/07/2019 3:02 AM [facility] Chloride 105 98 - 107 mmol/L 01/07/2019 3:02 AM [facility] CO2 24 22 - 29 mmol/L 01/07/2019 3:02 AM [facility] Glucose 112 70 - 115 mg/dL 01/07/2019 3:02 AM [facility] Calcium 9.0 8.4 - 10.2 mg/dL 01/07/2019 3:02 AM [facility] Anion Gap 15 8 - 18 01/07/2019 3:02 AM [facility] BUN/Creatinine Ratio 13 7 - 23 01/07/2019 3:02 AM [facility] Osmolality Calculated 290 270 - 300 mOsm/kg 01/07/2019 3:02 AM [facility] eGFR >60 >60 mL/min/1.7 3 m2 01/07/2019 3:02 AM [facility] Blood BLOOD SPECIMEN / Unknown Lab Venipuncture / Unknown 01/07/2019 2:34 AM PHYSICIAN SUPPORT COORDINATOR 01/07/2019 2:43 AM [facility] Elder Mg MD LAB - CHEMISTRY ORDERABLES Fin al Result [address] [phone] from Last 3 Months or Most Recently Relevant to Health Maintenance Insurance SELF PAY NO INSURANCE Member Subscriber Plan / Payer (Ef fective for All Dates) Name:JaimieTulio Member ID:Not on file Relation to Subscriber:Not on file Name:TULIO ETIENNE Subscriber ID:Not on file Address: [place] [address] Payer ID:Not on file Group ID:Not on file Type:Self Pay Address: [place], [place] SELF PAY NO INSURANCE Member Subscriber Plan / Payer (Ef fective for All Dates) Name:Jaimie Tulio Nogueira Member ID:Not on file Relation to Subscriber:Not on file Name:TULIO ETIENNE Subscriber ID:Not on file Address: [place] [address] Payer ID:Not on file Group ID:Not on file Type:Self Pay Address: [place], [place] * Guarantor: TULIO ETIENNE Account Type Relation to Patient Date of Phone Billing Address Personal/[place] [address] SELF PAY NO INSURANCE Member Subscriber Plan / Payer (Ef fective for All Dates) Name:Jaimie Tulio Nogueira Member ID:Not on file Relation to Subscriber:Not on file Name:TULIO ETIENNE Subscriber ID:Not on file Address: [place] [address] Payer ID:Not on file Group ID:Not on file Type:Self Pay Address: [place], [place] Advance Directives * Full Code (Latest Code Status on File) Date Activated Date Inactivated Comments 01/01/2019 2:30 AM 01/07/2019 7:10 PM Care Teams Basket Hand Weaver Relationship Specialty Start Date End Date Laxmi Golden MD [address] [place] [address] PCP - General Family Medicine 12/31/18
--- OUTSIDE RECORDS SUMMARY | 2024-09-19 07:16 | XMS_ITS | Encounter Summary ---
Author Organization [facility] Address [address] [place] [address] Care Team Providers Care Brake Operator Name Role Phone Laxmi Golden MD Primary Care Provider Karo thomas Encounter Details Date Type Department Care Team (Late st Contact Info) Description 01/13/2019 Telephone [facility] [address] [place] [id number] Tarik [place], DO [address] [place] [address] Social History Tobacco Use Types Packs/Day Years Used Date Smoking Tobacco: Every Day Cigarettes 1 35.7 Started: 01/12/1989 Smokeless Tobacco: Never Alcohol Use Standard Drinks/Week Comments Yes 80 (1 standard drink = 0.6 oz pu re alcohol) last drank mid Dec 2018 Sex and Gender Information Value Date Recorded Sex Assigned at Not on file 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 Answer Date of Assessment Author No 01/02/2019 12:41 PM Manuel Church RN * Is person blind or have serious difficulty seeing? Answer Date of Assessment Author No 01/02/2019 12:41 PM Manuel Church RN * Does person have serious difficulty walking/climbing stairs? Answer Date of Assessment Author No 01/02/2019 12:41 PM Manuel Church RN * Does person have difficulty dressing/bathing? Answer Date of Assessment Author No 01/02/2019 12:41 PM Manuel Church RN * Does person have difficulty doing errands alone? Answer Date of Assessment Author No 01/02/2019 12:41 PM Manuel Church RN documented as of this encounter Mental Status * Does person have difficulty concentrating/remembering/making decisions? Answer Entry Date Author No 01/02/2019 12:41 PM Manuel Church RN documented in this encounter Plan of Treatment Not on file documented as of this encounter Visit Diagnoses Not on filedocumented in this encounter Care Teams Brake Operator Relationship Specialty Start Date End Date Laxmi Golden MD [address] [place] [address] PCP - General Family Medicine 12/31/18 documented as of this encounter
--- OUTSIDE RECORDS SUMMARY | 2024-09-19 07:16 | XMS_ITS | Encounter Summary ---
Author Organization [facility] Address [address] [place] [address] Care Team Providers Care Loop Puller Name Role Phone Laxmi Golden MD Primary Care Provider U francisco javieraildeena Encounter Details Date Type Department Care Team (Late st Contact Info) Description 01/01/2019 Ophth Exam [facility] [address] [place] [address] Duncan De La Cruz MD [address] [facility] [address] DEPT OF OPHTHALMOLOGY [place], [place] Social History Tobacco Use Types Packs/Day Years Used Date Smoking Tobacco: Never Assessed Sex and Gender Information Value Date Recorded Sex Assigned at Not on file 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
--- OUTSIDE RECORDS SUMMARY | 2024-09-19 07:16 | XMS_ITS | Continuity of Care Document ---
Author Name [facility] Organization [facility] Care Team Providers Care Nut Steamer Name Role Phone [facility] Unavailable Unavailable Problems Combined list of problems from Department of Defense and Veterans Affairs facilities. It does not include entries that were removed or entered in error. 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 DoD ACTINIC KERATOSIS Active Condition DoD Patient Education - Self-Examination Of Testes Active Condition DoD Patient Counseling: Inactive Condition D oD Laboratory Studies Inactive Condition Do D visit for: routine eye exam Inactive Condition DoD tobacco use Inactive Condition DoD FINGER SPRAIN LEFT THUMB MCP MEDIAL COLLATERAL LIGAMENT Active Condition DoD OBESITY Active Condition DoD NICOTINE DEPENDENCE Active Condition Do D FINGER SPRAIN LEFT THUMB Inactive Condition [facility] visit for: screening exam Inactive Condition [facility] Tuberculin PPD Nonspec Reaction Without Active Tuberculosis Active Condition [facility] Patient Education - Medication Inactive Condition [facility] Patient Education - Medication Adverse Reactions Inactive Condition [facility] Administrative Evaluation Services Active Condition [facility] visit for: screening exam pulmonary tuberculosis Inactive Condition [facility] visit for: services physical Active Condition [facility] visit for: ears / hearing exam Active Condition [facility] Allergies, Adverse Reactions, Alerts Combined list of allergies from Department of Defense and Veterans Affairs facilities. It does not include entries that were removed or entered in error. Substance Category Reaction Severity Reaction type Status Date Reported Comments Source No Known Allergies Drug allergy (disorder) active 09/09/2007 KRISTINE [place], [place] Immunizations Combined list of available immunizations from the Department of Defense and Veterans Affairs facilities. Immunization Series Date Given Administered By Site Reaction Lot Number CVX Code Drug Serology Technician Status Comments Source COVID-19, mRNA, LNP-S, PF, 100 mcg or 50 mcg dose 2020 Florentin COBB [employer] (MOD) Not Given COVID-19, mRNA, LNP-S, PF, 100 mcg or 50 mcg dose DoD COVID-19, mRNA, LNP-S, PF, 100 mcg or 50 mcg dose 2020 VICENTA, [employer] (MOD) Not Given COVID-19, mRNA, LNP-S, PF, 100 mcg or 50 mcg dose DoD tuberculin purified protein derivative 2011 zzLef t Arm [id number] sanofi pasteur complet ed tuberculi n purified protein derivativ e 08/28/11 Given Ambulat ory Pharmac y tuberculin skin test; purified protein derivative solution, intradermal 1 2011 MAHIN BEGUM [id number] Sanofi Pasteur (PMC) complet ed tuberculi n skin test; purified protein derivativ e solution, intraderm al DoD tuberculin purified protein derivative 2011 zzLef t Arm [id number] sanofi pasteur complet ed tuberculi n purified protein derivativ e 03/12/11 Given Ambulat ory Pharmac y tuberculin skin test; purified protein derivative solution, intradermal 1 2011 Unknown, Provider [id number] Sanofi Pasteur ([facility]) complet ed tuberculi n skin test; purified protein derivativ e solution, intraderm al DoD influenza virus vaccine, live 2010 [id number] [employer] comple t ed influenza virus vaccine, live 11/21/10 Given Ambulat ory Pharmac y influenza virus vaccine, live, attenuated, for intranasal use 0 2010 [id number] 111 [employer] (MED) complet ed influenza virus vaccine, live, attenuate d, for intranasa l use DoD typhoid Vi capsular polysaccharid e vac 2010 zzLef t Arm [id number] sanofi pasteur complet ed typhoid Vi capsular polysacch aride vac 09/08/10 Given Ambulat ory Pharmac y typhoid Vi capsular polysaccharid e vaccine 1 2010 Unknown, Provider [id number] 101 Sanofi Pasteur (PMC) complet ed typhoid Vi capsular polysacch aride vaccine DoD influenza virus vaccine, live 2009 [id number] 111 [employer] comple t ed influenza virus vaccine, live 12/21/09 Given Ambulat ory Pharmac y influenza virus vaccine, live, attenuated, for intranasal use 0 2009 [id number] 111 [employer] (MED) complet ed influenza virus vaccine, live, attenuate d, for intranasa l use DoD Novel influenza-H1N 1-09, injectable 2008 UNK 127 complet ed Novel influenza -[id number], injectabl e 01/20/09 Given Ambulat ory Pharmac y Novel influenza-H1N 1-09, injectable 0 2008 UNK 127 (AG) complet ed Novel influenza -[id number], injectabl e DoD influenza virus vaccine, live 2008 [id number] [employer] comple t ed influenza virus vaccine, live 10/21/08 Given Ambulat ory Pharmac y influenza virus vaccine, live, attenuated, for intranasal use 1 2008 AURELIA JACKSON [id number] [employer] (MED) complet ed influenza virus vaccine, live, attenuate d, for intranasa l use DoD influenza virus vaccine,split 2007 UNK 15 Unknown complet ed influenza virus vaccine,s plit 11/05/07 Given Ambulat ory Pharmac y influenza virus vaccine, split virus (incl. purified surface antigen)-reti red CODE 0 2007 UNK 15 Unknown (UNK) comple t ed influenza virus vaccine, split virus (incl. purified surface antigen)- retired CODE [facility] tuberculin skin test; old tuberculin, multipuncture device 0 2007 Unknown, Provider [id number] Other (OT) complet ed tuberculi n skin test; old tuberculi n, multipunc ture device DoD influenza virus vaccine, live 2006 UNK 111 complet ed influenza virus vaccine, live 12/26/06 Given Ambulat ory Pharmac y influenza virus vaccine, live, attenuated, for intranasal use 0 2006 UNK 111 (TRN) complet ed influenza virus vaccine, live, attenuate d, for intranasa l use DoD influenza virus vaccine,split 2006 [id number] 15 Unknown complet ed influenza virus vaccine,s plit 02/20/06 Given Ambulat ory Pharmac y tetanus-dipht h toxoids (Td) adult/adol 2006 [id number] 09 Unknown complet ed tetanus-d iphth toxoids (Td) adult/ado l 02/20/06 Given Ambulat ory Pharmac y tetanus and diphtheria toxoids, adsorbed, preservative free, for adult use (2 Lf of tetanus toxoid and 2 Lf of diphtheria toxoid) 0 2006 [id number] 09 Other (OTH) complet ed tetanus and diphtheri a toxoids, adsorbed, preservat malathi free, for adult use (2 Lf of tetanus toxoid and 2 Lf of diphtheri a toxoid) DoD influenza virus vaccine, split virus (incl. purified surface antigen)-reti red CODE 0 2006 [id number] 15 Other (OTH) complet ed influenza virus vaccine, split virus (incl. purified surface antigen)- retired CODE DoD influenza virus vaccine,split 2004 [id number] 15 Unknown complet ed influenza virus vaccine,s plit 12/20/04 Given Ambulat ory Pharmac y influenza virus vaccine, split virus (incl. purified surface antigen)-reti red CODE 0 2004 [id number] 15 Other (OTH) complet ed influenza virus vaccine, split virus (incl. purified surface antigen)- retired CODE DoD typhoid Vi capsular polysaccharid e vac 2004 [id number] 101 Unknown complet ed typhoid Vi capsular polysacch aride vac 10/11/04 Given Ambulat ory Pharmac y typhoid vaccine, inactivated 2004 UNKNOWN 101 Unknown complet ed typhoid vaccine, inactivat ed 10/11/04 Given Ambulat ory Pharmac y typhoid vaccine, parenteral, other than acetone-kille d, dried 1 2004 UNKNOWN 41 Unknown (UNK) comple t ed typhoid vaccine, parentera l, other than acetone-k illed, dried DoD typhoid Vi capsular polysaccharid e vaccine 0 2004 [id number] 101 Other (OTH) complet ed typhoid Vi capsular polysacch aride vaccine DoD influenza virus vaccine,split 2002 [id number] 15 Unknown complet ed influenza virus vaccine,s plit 01/27/03 Given Ambulat ory Pharmac y influenza virus vaccine, split virus (incl. purified surface antigen)-reti red CODE 2 2002 [id number] 15 Other (OTH) complet ed influenza virus vaccine, split virus (incl. purified surface antigen)- retired CODE DoD typhoid vaccine, inactivated 2002 [id number] 101 Unknown complet ed typhoid vaccine, inactivat ed 04/20/02 Given Ambulat ory Pharmac y typhoid Vi capsular polysaccharid e vac 2002 UNKNOWN 101 Unknown complet ed typhoid Vi capsular polysacch aride vac 04/20/02 Given Ambulat ory Pharmac y typhoid vaccine, parenteral, other than acetone-kille d, dried 1 2002 [id number] 41 Other (OTH) complet ed typhoid vaccine, parentera l, other than acetone-k illed, dried DoD typhoid Vi capsular polysaccharid e vaccine 1 2002 UNKNOWN 101 Unknown (UNK) comple t ed typhoid Vi capsular polysacch aride vaccine DoD influenza virus vaccine,split 2002 UNKNOWN 15 Unknown complet ed influenza virus vaccine,s plit 02/23/02 Given Ambulat ory Pharmac y influenza virus vaccine, split virus (incl. purified surface antigen)-reti red CODE 0 2002 UNKNOWN 15 Unknown (UNK) comple t ed influenza virus vaccine, split virus (incl. purified surface antigen)- retired CODE DoD yellow fever vaccine 1999 UNKNOWN 37 Unknown complet ed yellow fever vaccine 08/19/99 Given Ambulat ory Pharmac y yellow fever vaccine 0 1999 UNKNOWN 37 Unknown (UNK) comple t ed yellow fever vaccine DoD hepatitis A adult vaccine 1996 UNKNOWN 52 Unknown complet ed hepatitis A adult vaccine 01/23/97 Given Ambulat ory Pharmac y hepatitis A vaccine, adult dosage 2 1996 UNKNOWN 52 Unknown (UNK) comple t ed hepatitis A vaccine, adult dosage DoD hepatitis A adult vaccine 1996 UNKNOWN 52 Unknown complet ed hepatitis A adult vaccine 11/23/96 Given Ambulat ory Pharmac y hepatitis A vaccine, adult dosage 0 1996 UNKNOWN 52 Unknown (UNK) comple t ed hepatitis A vaccine, adult dosage DoD hepatitis A adult vaccine 1996 UNKNOWN 52 Unknown complet ed hepatitis A adult vaccine 07/10/96 Given Ambulat ory Pharmac y hepatitis A vaccine, adult dosage 1 1996 UNKNOWN 52 Unknown (UNK) comple t ed hepatitis A vaccine, adult dosage DoD typhoid vaccine, inactivated 1996 UNKNOWN 101 Unknown complet ed typhoid vaccine, inactivat ed 03/10/96 Given Ambulat ory Pharmac y typhoid vaccine, parenteral, other than acetone-kille d, dried 0 1996 UNKNOWN 41 Unknown (UNK) comple t ed typhoid vaccine, parentera l, other than acetone-k illed, dried DoD tetanus-dipht h toxoids (Td) adult/adol 1996 UNKNOWN 09 Unknown complet ed tetanus-d iphth toxoids (Td) adult/ado l 02/24/96 Given Ambulat ory Pharmac y tetanus and diphtheria toxoids, adsorbed, preservative free, for adult use (2 Lf of tetanus toxoid and 2 Lf of diphtheria toxoid) 0 1996 UNKNOWN 09 Unknown (UNK) comple t ed tetanus and diphtheri a toxoids, adsorbed, preservat malathi free, for adult use (2 Lf of tetanus toxoid and 2 Lf of diphtheri a toxoid) DoD vaccinia (smallpox) vaccine 1986 UNK 75 Unknown complet ed vaccinia (smallpox ) vaccine 01/27/87 Given Ambulat ory Pharmac y vaccinia (smallpox) vaccine 0 1986 UNK 75 Unknown (UNK) comple t ed vaccinia (smallpox ) vaccine DoD measles/mumps /rubella virus vaccine 1986 UNKNOWN 03 Unknown complet ed measles/m umps/rube lla virus vaccine 12/31/86 Given Ambulat ory Pharmac y measles, mumps and rubella virus vaccine 0 1986 UNKNOWN 03 Unknown (UNK) comple t ed measles, mumps and rubella virus vaccine DoD poliovirus vaccine, live, oral 1986 UNKNOWN 02 Unknown complet ed polioviru s vaccine, live, oral 12/23/86 Given Ambulat ory Pharmac y meningococcal polysaccharid e (MPSV4) 1986 UNKNOWN 32 Unknown complet ed meningoco ccal polysacch aride (MPSV4) 12/23/86 Given Ambulat ory Pharmac y trivalent poliovirus vaccine, live, oral 0 1986 UNKNOWN 02 Unknown (UNK) comple t ed trivalent polioviru s vaccine, live, oral DoD meningococcal polysaccharid e vaccine (MPSV4) 1 1986 UNKNOWN 32 Unknown (UNK) comple t ed meningoco ccal polysacch aride vaccine (MPSV4) DoD Encounters Combined list of: 1) Encounters from Department of Veterans Affairs facilities going backup to the last 18 months, not all VA inpatient encounters are included; 2) Encounters from the Department of Defense facilities going backup to 280 months. Location Location Details Encounter Type Encounter Number Reason For Visit Attending Provider ADM Date DC Date Status Disposition Source [facility](Mi litary Sick Call [facility]) OUTPATIENT [id number] TRANG Arthur 06/08 Released w/o Limitations [facility]( Militar y Sick Call [facility]) [facility] OUTPATIENT [id number] FARNAZ Vicente 06/08 Released w/o Limitations [facility]( [facility]) [facility](Im munizatio n [facility]) OUTPATIENT [id number] TST PLACED KOKI JEAN 06/08 Released w/o Limitations [facility]( Immuniz ation [facility] 237) [facility]( munizatio n [facility]) OUTPATIENT [id number] TB read = zero KOKI JEAN 06/10 Released w/o Limitations [facility]( Immuniz ation [facility]) [facility](Sd litary Sick Call [facility]) OUTPATIENT [id number] finger problem KAMERON APONTE 07/31 Released with Work/Duty Limitations [facility]( Militar y Sick Call [facility]) [facility](Or thopedic Clinic [facility]) OUTPATIENT [id number] FINGER SPRAIN LEFT THUMB KAI JUAREZ 08/11 Released w/o Limitations [facility]( Orthope dic Clinic [facility]) [facility] Team 1 [facility]) OUTPATIENT [id number] tobacco cessati on GET WALLER 08/11 Released w/o Limitations [facility]( Pharmac y [facility] Team 1 [facility]) [facility](Or thopedic Clinic [facility]) OUTPATIENT [id number] f/u KAI Hinojosa 09/08 Released w/o Limitations [facility]( Orthope dic Clinic [facility]) [facility](Mi litary Sick Call [facility]) OUTPATIENT [id number] GIOVANNA Willoughby 05/28 Released w/o Limitations [facility]( Militar y Sick Call [facility]) [facility]( [facility]) OUTPATIENT [id number] JERSON GARIBAY 05/28 Released w/o Limitations [facility]( [facility]) [facility](Mi litary Sick Call [facility]) OUTPATIENT [id number] rash on arm SETH TOVAR 06/30 Released w/o Limitations [facility]( Militar y Sick Call [facility]) [facility](De rmatology Clinic [facility]) OUTPATIENT [id number] ACNE KELOIDA LIS JERROD TAYLOR AMISCUA 07/01 Released w/o Limitations [facility]( Dermato logy Clinic [facility]) [facility](De rmatology Clinic [facility]) OUTPATIENT [id number] suture removal JERROD TAYLOR AMISCUA 07/12 Released w/o Limitations [facility]( Dermato logy Clinic [facility]) [facility](Mi litary Sick Call [facility]) OUTPATIENT [id number] PHA/BOUCHRA MANN 06/15 Released w/o Limitations [facility]( Militar y Sick Call [facility]) [facility](Op tometry [facility]) OUTPATIENT [id number] GET MOSES 06/15 Released w/o Limitations [facility]( Optomet ry [facility]) [facility]( ar[facility] ion [facility]) OUTPATIENT [id number] FARNAZ MORGAN 06/15 Released w/o Limitations [facility]( [facility]) [facility](Mi litary Sick Call [facility]) OUTPATIENT [id number] elbow pain on both elbows SETH TOVAR 12/26 Released w/o Limitations [facility]( Militar y Sick Call [facility]) [place]([facility]) OUTPATIENT [id number] Audiogr am LPD 24 NATHANAEL MOURA S 09/08 Released w/o Limitations [place] [place]) OUTPATIENT [id number] YAJAIRA Azevedo 09/08 Released w/o Limitations [place]([facility]) [employer](Brandan rhinolary ngology/E NT) OUTPATIENT [id number] ROBERT ALVAREZ 05/08 Released w/o Limitations [employer](O torhino laryngo logy/EN T) [employer]([facility]ul [facility] 0073) OUTPATIENT [id number] Notes Entered by: ALIVIA SHELBY 10 Aug 2011 0822 ------- ------- ------- ------- -- Sleep Study SARAH PANTOJA 08/09 Released w/o Limitations [employer](P ulmonar y Disease Clinic 0073) [place]Gpt Immunizat ions) OUTPATIENT [id number] Notes Entered by: SERGIO BEGUM SA 28 Aug 2011 0816 ------- ------- ------- ------- -- ppd MAHIN BEGUM 08/27 Released w/o Limitations [place]Gpt Immuniz ations) [employer](Brandan rhinolary ngology/E NT) OUTPATIENT [id number] Dr. Shannan pierre's patient (Hollie [facility] 2nd opinion for Laryngo pharyng eal Reflux MARGRET BASSETT 09/17 Released w/o Limitations [employer](O torhino laryngo logy/EN T) [employer]([facility]73) OUTPATIENT [id number] Notes Entered by: MARIAM LAWRENCE 05 Nov 2011 0848 ------- ------- ------- ------- -- Sleep Study SARAH PANTOJA 11/04 Released w/o Limitations [employer](P ulmonar y Disease Clinic 0073) [facility] Outpatient Encounter [id number] 07/03 [facility] Procedures Combined list of: 1) Procedures from Department of [facility] Affairs facilities going back up to thelast 18 months, not all VA non-surgical procedures are included; 2) All procedures from the Department of Defense facilities. Procedure Procedure Type Code Date Perfomer Comments Sourc e No data available for this section Amb[facility] ry Pharmacy SKIN TEST; TUBERCULOSIS, INTRADERMAL 012 [facility] TYPHOID VACCINE, CAPSULAR POLYSACCHARIDE (VICPS), FOR INTRAMUSCULAR USE 011 [facility] AUDIOMETRIC TESTING OF GROUPS 011 [facility] DESTRUCTION (EG, LASER SURGERY, ELECTROSURGERY, CRYOSURGERY, CHEMOSURGERY, SURGICAL CURETTEMENT), PREMALIGNANT LESIONS (EG, ACTINIC KERATOSES); FIRST LESION 006 DoD PHYS/OTH QUALIFIED HEALTH NEWS EDITOR QUALIFIED,EDUCATIO N,TRAIN,LICENSURE/ REGULATION (WHEN APPLICABLE) EDUC SER RENDERED TO PATS IN A GRP SETTING (EG,,OBESI TY,OR DIABETIC INSTRUCT) 005 DoD PHYS/OTH QUALIFIED HEALTH NEWS EDITOR QUALIFIED,EDUCATIO N,TRAIN,LICENSURE/ REGULATION (WHEN APPLICABLE) EDUC SER RENDERED TO PATS IN A GRP SETTING (EG,,OBESI TY,OR DIABETIC INSTRUCT) 005 DoD PHYS/OTH QUALIFIED HEALTH NEWS EDITOR QUALIFIED,EDUCATIO N,TRAIN,LICENSURE/ REGULATION (WHEN APPLICABLE) EDUC SER RENDERED TO PATS IN A GRP SETTING (EG,,OBESI TY,OR DIABETIC INSTRUCT) 005 [facility] PURE TONE AUDIOMETRY (THRESHOLD); AIR ONLY 004 [facility] PURE TONE AUDIOMETRY (THRESHOLD); AIR ONLY 003 [facility] INFLUENZA VIRUS VACCINE, TRIVALENT, LIVE (LAIV3), FOR INTRANASAL USE [facility] SCREENING TEST OF VISUAL ACUITY, QUANTITATIVE, BILATERAL [facility] INFLUENZA VIRUS VACCINE, PANDEMIC FORMULATION, H1N1 009 [facility] INFLUENZA VIRUS VACCINE, TRIVALENT, LIVE (LAIV3), FOR INTRANASAL USE [facility] DESTRUCTION (EG, LASER SURGERY, ELECTROSURGERY, CRYOSURGERY, CHEMOSURGERY, SURGICAL CURETTEMENT), PREMALIGNANT LESIONS (EG, ACTINIC KERATOSES); FIRST LESION 009 [facility] INFLUENZA VIRUS VACCINE, TRIVALENT, LIVE (LAIV3), FOR INTRANASAL USE [facility] MEDICATION THERAPY MANAGEMENT SERVICE(S) PROVIDED BY A PHARMACIST, INDIVIDUAL, [id number] WITH PATIENT, INITIAL 15 MINUTES, WITH ASSESSMENT, AND INTERVENTION IF PROVIDED; INITIAL ENCOUNTER [facility] NURSING ASSESSMENT/EVALUAT ION [facility] WELLNESS ASSESSMENT, PERFORMED BY NON-PHYSICIAN [facility] POLYSOMNOGRAPHY;AG E 6 YEARS/OLDER,SLEEP STAGING W 4/MORE ADDITIONAL PARAMETERS OF SLEEP,W INITIATION OF CONTINUOUS POSITIVE AIRWAY PRESSURE THERAPY/BILEVEL VENTILATION,ATTEND ED BY A TECHNOLOGIST [facility] POLYSOMNOGRAPHY; ANY AGE, SLEEP STAGING WITH 1-3 ADDITIONAL PARAMETERS OF SLEEP, ATTENDED BY A TECHNOLOGIST [facility] LARYNGOSCOPY, FLEXIBLE; DIAGNOSTIC [facility] Polys W/ Four Or More Addit Sleep Edmar Init CPAP/Bilev Vent MARIAM LOOMIS [facility] Skin Test Anergy tuberculin Skin Test Anergy tuberculin 81183 MAHIN BEGUM [facility] Polysomnography SUSAN SHELBY [facility] Fiberoptic Laryngoscopy Flexible (diagnostic) Fiberoptic Laryngoscopy Flexible (diagnostic) [id number] ROBERT ALVAREZ After verbal consent was obtained, the nose, throat and larynx were prepared with topical afrin/lidocaine mixture, the nose, throat and larynx were then evaluated using a flexible fiberoptic endoscope, pt tolerated well, there were no complications [facility] Immunization Administration One Vaccine Immunization Administration One Vaccine [id number] 011 MICHAELYAJAIRA Typhoid Vaccine Vi Capsular Polysaccharide, For Intramus Use Typhoid Vaccine Vi Capsular Polysaccharide, For Intramus Use [id number] YAJAIRA RODRIGUEZ [facility] Audiometry Group Testing Audiometry Group Testing [phone] NATHANAEL MOURA [facility] Patient education, not otherwise cla ified, non-physician provider, individual, per se ion 011 NATHANAEL MOURA [facility] Screening Test Of Visual Acuity, Quantitative, Bilateral Screening Test Of Visual Acuity, Quantitative, Bilateral 15989 010 GET WALLS [facility] Destruction Of Premalignant Lesion By Any Method One Lesion [address] [facility] Biopsy Skin Biopsy Skin [address] [facility] Medication Management By Pharmacist Initial Encounter Medication Management By Pharmacist Initial Encounter [id number] GET WALLER [facility] Health And Behav A e mt Each 15 Min Initial A e ment Health And Behav Assessmt Each 15 Min Initial Assessment [id number] GET WALLER [facility] Nursing a e ment/evaluation KOKI JEAN Wellne a e ment, performed by non-physician KOKI JEAN Gauze, non-impregnated, sterile, pad size 16 sq. in. or le , without adhesive border, each teodoro ing KOKI JEAN Syringe with needle, sterile, 1 cc or le , each KOKI JEAN Needle-free injection device, each KOKI JEAN Needle, sterile, any size, each KOKI JEAN Skin Test Anergy Tuberculin Intradermal Skin Test Anergy Tuberculin Intradermal 49026 KOKI JEAN Social History Combined list of available smoking, tobacco, and other social history from Department of Defense and Veterans Affairs facilities. Social History Type Response Date Comment Sourc e This section is an empty social history section. DoD Assessment and Plan Combined list of future care activities from [facility] of Defense and Veterans Affairs facilities (e.g., assessment and plan notes, appointments, orders, and referrals). Additional future care activities may be listed in the Plan of Care section. Result Assessment and Plan Date Source Assessment and Plan No data available for this section 09/19/2024 Ambulatory Pharmacy Functional Status Combined list of recent functional and cognitive assessments recorded at [facility] ([place] Functional Banner Measurement (FIM) Scale: 1 = Total Assistance (Subject = 0% +), 2 = Maximal Assistance (Subject = 25% +), 3 = Moderate Assistance (Subject = 50% +), 4 = Minimal Assistance (Subject = 75% +), 5 = Supervision, 6 = Modified Banner (Device), 7 = Complete Banner (Timely, Safely). Assessment Date/Time Source Assessment Type Assessment Skill Assessment Score Assessment Details No data available for this section
[2024-09-19 07:49] LABS: Add Urine Microscopic? YES; Appearance Urine Clear (Clear); Glucose Urine UA 3+ mg/dL (Negative); Leukocyte Esterase Ur Negative LEU/UL (Negative); Nitrate Urine Negative (Negative); Non Pathogenic Casts 0-2; Specific Grav Ur 1.029 (1.001-1.035)
[2024-09-19 07:50] LABS: Hemoglobin A1C 6.8 % (<5.7)
[2024-09-19 08:02] LABS: Alanine Aminotransferase 40 U/L (6-50); Albumin Level 4.3 g/dL (3.5-5.1); Alkaline Phosphatase 65 U/L (38-126); Anion Gap 9 mmol/L (4-12); Aspartate Amino Transferase 31 U/L (17-59); Bilirubin,Total 0.4 mg/dL (0.2-1.3); Blood Urea Nitrogen 12 mg/dL (9-20); Calcium 9.2 mg/dL (8.4-10.2); Carbon Dioxide 23 mmol/L (22-30); Chloride 107 mmol/L (98-107); Cholesterol 175 mg/dL (0-200); Estimated Glomerular Filt Rate > 60; Glucose 120 mg/dL (65-110); HDL Direct 41 mg/dL; Potassium 4.4 mmol/L (3.4-5.0); Sodium 139 mmol/L (137-145); Total Protein 7.5 g/dL (6.3-8.2); Triglycerides 493 mg/dL (<150)
[2024-09-19 08:38] LABS: Prostate Specific Antigen 1.4 ng/mL (< OR = 4.0); Thyroid Stimulating Hormone 1.710 uIU/mL (0.465-4.680)
[2024-09-19 15:34] LABS: MALB Creatinine Ratio 253.6 mg/g (0-30)
== END 2024-09-19 07:13 | disposition home or self-care (01) ==
LOC: ANHLAB 07:14
PROVIDERS: PCP Family Medicine; Visit Provider Physician Assistant
DX: Z12.5 Encounter for screening for malignant neoplasm of prostate (principal); E11.9 Type 2 diabetes mellitus without complications; I10 Essential (primary) hypertension; E78.2 Mixed hyperlipidemia; E78.1 Pure hyperglyceridemia; R53.83 Other fatigue
CPT/HCPCS: 36415; 80053; 80061; 81001; 82043; 83036; 84153; 84443; G0103

== ENCOUNTER 2024-11-23 07:51 | Outpatient (CLI) | payer OTHER, SELFPAY ==
--- NOTE | 2024-11-23 07:59 | ECG_ITS ---
Test Date: 2024-11-23 08:09:45 Measurements Intervals [place] Rate: 77 P: 19 IA: 144 QRS: 54 QRSD: 96 T: 63 QT: 376 QTc: 427 Interpretive Statements SINUS RHYTHM WITH MARKED SINUS ARRHYTHMIA INCOMPLETE RIGHT BUNDLE BRANCH BLOCK DELAYED PRECORDIAL R/S TRANSITION BASELINE ARTIFACT- I, II, AVR, AVL, AVF BORDERLINE ECG No previous ECG available for comparison Electronically Signed On 11-23-2024 08:41:55 CDT by Dakotah Henry D.O.
--- OUTSIDE RECORDS SUMMARY | 2024-11-23 08:03 | XMS_ITS | Encounter Summary ---
Author Organization [facility] Address [address] [place] [address] Care Team Providers Care Equipment Cleaner Name Role Phone Laxmi Golden MD Primary Care Provider Karo thomas Encounter Details Date Type Department Care Team (Late st Contact Info) Description 01/13/2019 Telephone [facility] ANESTHESIA [address] [place] [id number] Tarik [place], DO [address] [place] [address] Social History Tobacco Use Types Packs/Day Years Used Date Smoking Tobacco: Every Day Cigarettes 1 35.9 Started: 01/12/1989 Smokeless Tobacco: Never Alcohol Use Standard Drinks/Week Comments Yes 80 (1 standard drink = 0.6 oz pu re alcohol) last drank mid Dec 2018 Sex and Gender Information Value Date Recorded Sex Assigned at Not on file 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 Answer Date of Assessment Author No 01/14/2019 9:58 AM Shane Hay RN * In the past 30 days, have you actually had any thoughts about killing yourself? Answer Date of Assessment Author No 01/14/2019 9:58 AM Shane Hay RN documented as of this encounter Mental Status * Does person have difficulty concentrating/remembering/making decisions? Answer Entry Date Author No 01/02/2019 12:41 PM Manuel Church RN documented in this encounter Plan of Treatment Not on file documented as of this encounter Visit Diagnoses Not on filedocumented in this encounter Care Teams Equipment Cleaner Relationship Specialty Start Date End Date Laxmi Golden MD [address] [place] [address] PCP - General Family Medicine 12/31/18 documented as of this encounter
--- OUTSIDE RECORDS SUMMARY | 2024-11-23 08:03 | XMS_ITS | Encounter Summary ---
Author Organization [facility] Address [address] [facility] [place] [address] Care Team Providers Care Branch Examiner Name Role Phone Laxmi Golden MD Primary Care Provider U martha Encounter Details Date Type Department Care Team (Late st Contact Info) Description 01/01/2019 Ophth Exam [facility] [address] [place] [address] Duncan De La Cruz MD [address] [facility] [address] DEPT OF OPHTHALMOLOGY [place], [place] Social History Tobacco Use Types Packs/Day Years Used Date Smoking Tobacco: Never Assessed Sex and Gender Information Value Date Recorded Sex Assigned at Not on file 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 No 01/02/2019 12:41 PM Elin Church RN Is person blind or have seri ous difficulty seeing? No 01/02/2019 12:41 PM Elin Church RN Does person have serious dif ficulty walking/climbing stairs? No 01/02/2019 12:41 PM Belem Church RN Does person have difficulty dressing/bathing? No 01/02/2019 12:41 PM Elin Church RN Does person have difficulty doing errands alone? No 01/02/2019 12:41 PM Elin Church RN Does person have difficulty concentrating/remembering/making decisions? No 01/02/2019 12:41 PM Elin Church RN * In the past 30 days, have you wished you were or wished you could go to sleep and not wake up? Answer Date of Assessment Author No 01/02/2019 12:41 PM Manuel Church RN * In the past 30 days, have you actually had any thoughts about killing yourself? Answer Date of Assessment Author No 01/02/2019 12:41 PM Manuel Church RN documented as of this encounter Plan of Treatment Not on file documented as of this encounter Visit Diagnoses Not on filedocumented in this encounter Care Teams Branch Examiner Relationship Specialty Start Date End Date Laxmi Golden MD [address] [place] [address] PCP - General Family Medicine 12/31/18 documented as of this encounter
--- OUTSIDE RECORDS SUMMARY | 2024-11-23 08:03 | XMS_ITS | Clinical Summary ---
Author Organization [facility] Address [address] [facility] [address] [facility] [address] [place] [address] Care Team Providers Care Business Reporter Name Role Phone Laxmi Golden MD Primary Care Provider U francisco javieraildeena Source Comments [facility],non-owned Affiliates and Associated Physician Practices is amultiple site organization consisting of ambulatory clinics and hospital sitesin [place], [place], [place] and [place]. This disclosure is being madepursuant to the Care Everywhere program and may not contain all information available regarding this patient. 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 Gender Identity Not on file Sexual Orientation Not on file Last Filed Vital Signs Vital Sign Reading Time Taken Comments Blood Pressure 124/77 02/09/2019 11:05 AM AGRICULTURAL SPECIALIST Pulse 93 02/09/2019 11:05 AM AGRICULTURAL SPECIALIST Temperature 37.4 C (99.3 F) 02/09/2019 11:05 AM AGRICULTURAL SPECIALIST Respiratory Rate 20 02/09/2019 11:05 AM AGRICULTURAL SPECIALIST Oxygen Saturation 94% 02/09/2019 11:05 AM AGRICULTURAL SPECIALIST Inhaled Oxygen Concentration 98% 01/14/2019 1 2:34 PM AGRICULTURAL SPECIALIST Weight 90.7 kg (200 lb) 02/24/2019 8:49 AM AGRICULTURAL SPECIALIST Height 170.2 cm (5' 7) 02/24/2019 8:49 AM AGRICULTURAL SPECIALIST Body Mass Index 31.32 02/24/2019 8:49 AM AGRICULTURAL SPECIALIST Plan of Treatment Health Maintenance Due Date [...] 01/07/2022 9, 01/06/2019, 01/05/2019, Additional history exists DEPRESSION SCREENING 02/12/2024 COVID-19 VACCINE ( season) 2024 INFLUENZA VACCINE (#1) 2024 DTAP/TDAP/TD VACCINES (2 [...] this topic Medical Devices Implanted Type Area Mis Director Device Identifier Shelf Expiration Date Model / Serial / Lot Screw 2.5mm 22mm 1.3mm Slf-Tap Pg Nlckg Implanted:Qty: 2 on 01/12/2019 by Daina Beavers MD at [facility] Left: Wrist [employer] [id number] / / Plate 4 Hl Lopro Fx Ang Wire W Head Rds Implanted:Qty: 1 on 01/12/2019 by Daina Beavers MD at [facility] Left: Wrist [employer] [id number] / / Peg Fx 2.5mm 22mm Ft Lck Screw Tmx Alps Implanted:Qty: 1 on 01/12/2019 by Daina Beavers MD at [facility] Left: Wrist [employer] [id number] / / Peg Fx 2.5mm 24mm Ft Lck Screw Tmx Alps Implanted:Qty: 2 on 01/12/2019 by Daina Beavers MD at [facility] Left: Wrist [employer] [id number] / / Peg Fx 2.5mm 28mm Ft Sm Bone Lck Screw Implanted:Qty: 1 on 01/12/2019 by Daina Beavers MD at [facility] Left: Wrist [employer] [id number] / / Peg Fx 2.5mm 24mm Rds Dist Volr Thrd Implanted:Qty: 1 on 01/12/2019 by Daina Beavers MD at [facility] Left: Wrist [employer] 1311-12-24 4 / / Screw 3.5mm 12mm Cortx Ti Nonster Dvr Implanted:Qty: 1 on 01/12/2019 by Daina Beavers MD at [facility] Left: Wrist [employer] [id number] / / Screw 3.5mm 14mm Cortx Ti Nonster Dvr Implanted:Qty: 1 on 01/12/2019 by Daina Beavers MD at [facility] Left: Wrist [employer] [id number] / / Wire K .045in 6in 2 Troc Pnt Smth Ss Fx Implanted:Qty: 2 on 01/14/2019 by Bon Morgan MD at [facility] Right: Thumb [employer] 10/30/2022 [id number] / / [id number] Explanted Type Area Mis Director Device Identifier Shelf Expiration Date Model / Serial / Lot Wire K 1.6mm Ss Fx Nonster Explanted:Qty: 3 on 01/12/2019 by Daina Beavers MD at [facility] Left: Wrist [employer] [id number] / / Screw 2.5mm 24mm 1.3mm Slf-Tap Pg Nlckg Explanted:Qty: 1 on 01/12/2019 by Daina Beavers MD at [facility] Left: Wrist [employer] [id number] / / Procedures Procedure Name Priority Date/Time Associated Diagnosis Comments BASIC METABOLIC PANEL (CALCIUM TOTAL) AM Draw 01/07/2019 2:34 AM AGRICULTURAL SPECIALIST from Last 3 Months or Most Recently Relevant to Health Maintenance Results * BASIC METABOLIC PANEL (CALCIUM TOTAL) (01/07/2019 2:34 AM AGRICULTURAL SPECIALIST) BUN 10 7 - 26 mg/dL 01/07/2019 3:02 AM [facility] Creatinine 0.8 0.6 - 1.2 mg/dL 01/07/2019 3:02 AM [facility] Sodium 140 136 - 145 mmol/L 01/07/2019 3:02 AM [facility] Potassium 4.0 3.5 - 4.5 mmol/L 01/07/2019 3:02 AM [facility] Chloride 105 98 - 107 mmol/L 01/07/2019 3:02 AM [facility] CO2 24 22 - 29 mmol/L 01/07/2019 3:02 AM [facility] Glucose 112 70 - 115 mg/dL 01/07/2019 3:02 AM [facility] Calcium 9.0 8.4 - 10.2 mg/dL 01/07/2019 3:02 AM [facility] Anion Gap 15 8 - 18 01/07/2019 3:02 AM [facility] BUN/Creatinine Ratio 13 7 - 23 01/07/2019 3:02 AM [facility] Osmolality Calculated 290 270 - 300 mOsm/kg 01/07/2019 3:02 AM [facility] eGFR >60 >60 mL/min/1.7 3 m2 01/07/2019 3:02 AM [facility] Blood BLOOD SPECIMEN / Unknown Lab Venipuncture / Unknown 01/07/2019 2:34 AM AGRICULTURAL SPECIALIST 01/07/2019 2:43 AM [facility] Elder Mg MD LAB - CHEMISTRY ORDERABLES Fin al Result [address] [phone] from Last 3 Months or Most Recently Relevant to Health Maintenance Insurance SELF PAY NO INSURANCE Member Subscriber Plan / Payer (Ef fective for All Dates) Name:JaimieTulio Member ID:Not on file Relation to Subscriber:Not on file Name:TULIO ETIENNE Subscriber ID:Not on file [place]: [place] [address] Payer ID:Not on file Group ID:Not on file Type:Self Pay Address: [place], [place] SELF PAY NO INSURANCE Member Subscriber Plan / Payer (Ef fective for All Dates) Name:Jaimie Tulio Nogueira Member ID:Not on file Relation to Subscriber:Not on file Name:TULIO ETIENNE Subscriber ID:Not on file Address: [place] [address] Payer ID:Not on file Group ID:Not on file Type:Self Pay Address: [place], [place] * Guarantor: TULIO ETIENNE Account Type Relation to Patient Date of Phone Billing Address Personal/[place] [address] SELF PAY NO INSURANCE Member Subscriber Plan / Payer (Ef fective for All Dates) Name:Jaimie Tulio Nogueira Member ID:Not on file Relation to Subscriber:Not on file Name:TULIO ETIENNE Subscriber ID:Not on file Address: [place] [address] Payer ID:Not on file Group ID:Not on file Type:Self Pay Address: [place], [place] Advance Directives * Full Code (Latest Code Status on File) Date Activated Date Inactivated Comments 01/01/2019 2:30 AM 01/07/2019 7:10 PM Care Teams Business Reporter Relationship Specialty Start Date End Date Laxmi Golden MD [address] [place] [address] PCP - General Family Medicine 12/31/18
[2024-11-23 08:51] LABS: Anion Gap 10 mmol/L (4-12); Blood Urea Nitrogen 19 mg/dL (9-20); Calcium 9.4 mg/dL (8.4-10.2); Carbon Dioxide 25 mmol/L (22-30); Chloride 103 mmol/L (98-107); Estimated Glomerular Filt Rate > 60; Glucose 129 mg/dL (65-110); Potassium 4.5 mmol/L (3.4-5.0); Sodium 138 mmol/L (137-145)
== END 2024-11-23 07:52 | disposition home or self-care (01) ==
LOC: ANHSURGERY 07:55
PROVIDERS: Anesthesiology; PCP Family Medicine; Visit Provider Surgery
DX: K42.9 Umbilical hernia without obstruction or gangrene (principal); E11.9 Type 2 diabetes mellitus without complications; I10 Essential (primary) hypertension; Z79.899 Other long term (current) drug therapy
CPT/HCPCS: 36415; 80048; 86850; 86900; 86901; 93005

== ENCOUNTER 2024-11-25 02:20 | Day surgery (SDC) | payer OTHER, SELFPAY ==
[2024-11-19 11:03] VITALS: BMI 34.3
--- NOTE | 2024-11-19 11:13 | SUR.PREOP ---
[facility] has started construction of its new state of the art ER which will open Spring 2026. With this, we anticipate parking may be a challenge for some our surgical patients and families. Parking spaces are limited but are available for all Surgical, obstetrics, and ER patients sharing this lot. If you arrive and find you are having a hard time finding a parking space, please note that we understand the challenges, please drive around the hospital and park near Hospital Entrance 1. When you enter this entrance, you can ask a volunteer to direct or take you back to the surgical waiting area to check in. We appreciate everyone?s understanding of these expected challenges while we build for your future. Report to the Outpatient Waiting Room, entrance under the green pavilion located off [address], at time __6am on date 11/25/24 . Planned Procedure Time: _730am___.? Time changes happen often and if your time is changed the preop area will call you the afternoon before. - You and your visitor will be asked to self-screen and do not enter if you have any COVID symptoms. Please call surgeon if you need to reschedule. - A mask is optional within the hospital at this time. Patients may have clear liquids (water, carbonated beverages, clear teas, apple juice) until 3 hours prior to surgery with a maximum of 20 ounces. - No food from midnight until time of surgery and no smoking, or chewing tobacco (or any form of nicotine). No chewing gum, candy or mints. Take only the following medications with a SIP of water on the morning of surgery: ____None DO NOT STOP ANY OF YOUR OTHER PRESCRIPTION MEDICATIONS PRIOR TO SURGERY EXCEPT THE FOLLOWING Hold all vitamins and supplements for 3 days per anesthesiologist. Medications to discontinue per physician n/a Date to take last dose of MTV___11/21/24 Please no make-up, nail citizen of [place], hairspray, perfume, deodorant, or body powder the day of surgery.? No jewelry (including any body piercings) or valuables the day of surgery, leave them at home.? Please take a shower or bath the night before, or the morning of, surgery with an antibacterial soap.? Wear comfortable, loose fitting clothing.? - Jewelry must be removed prior to entering the operating room.? Rings and piercings that are not removed may be cut off. - The hospital will not accept responsibility for valuables.? - Please leave all valuables, including medications, at home the day of surgery. If you are going home after surgery, a licensed heavy truck driver must drive you home.? - NO public transportation without another adult if you receive anesthesia. - We recommend that an adult stay with you for 24 hours following discharge. - We also recommend that you do not drive, make important decision, drink alcoholic beverages, or take any drugs that were not prescribed by your health care provider for at least 24 hours after your discharge time. Follow any additional instructions given to you from your surgeon. Telephone instructions given to _Tulio___and asked if any additional questions and then verbalized understanding. Patient advised to call surgeon office or pre surgery nurse liaison [phone] if any additional questions.
[2024-11-25] VITALS (10 sets, daily range): BP systolic 114–131; BP diastolic 64–85; PULSE 71–86; RESP 14–18; TEMP 36.3–36.5; O2SAT 88–98; BMI 34.4
--- OUTSIDE RECORDS SUMMARY | 2024-11-25 02:23 | XMS_ITS | Clinical Summary ---
Author Organization [facility] Address [address] [place] [address] Care Team Providers Care Transportation Consultant Name Role Phone Laxmi Golden MD Primary Care Provider U francisco javieraildeena Source Comments [facility],non-owned Affiliates and Associated Physician Practices is amultiple site organization consisting of ambulatory clinics and hospital sitesin [place], [place], [place] and [place]. This disclosure is being madepursuant to the Care Everywhere program and may not contain all information available regarding this patient. 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 Gender Identity Not on file Sexual Orientation Not on file Last Filed Vital Signs Vital Sign Reading Time Taken Comments Blood Pressure 124/77 02/09/2019 11:05 AM MANAGER INTEL Pulse 93 02/09/2019 11:05 AM MANAGER INTEL Temperature 37.4 C (99.3 F) 02/09/2019 11:05 AM MANAGER INTEL Respiratory Rate 20 02/09/2019 11:05 AM MANAGER INTEL Oxygen Saturation 94% 02/09/2019 11:05 AM MANAGER INTEL Inhaled Oxygen Concentration 98% 01/14/2019 1 2:34 PM MANAGER INTEL Weight 90.7 kg (200 lb) 02/24/2019 8:49 AM MANAGER INTEL Height 170.2 cm (5' 7) 02/24/2019 8:49 AM MANAGER INTEL Body Mass Index 31.32 02/24/2019 8:49 AM MANAGER INTEL Plan of Treatment Health Maintenance Due Date [...] this topic Medical Devices Implanted Type Area Immigration Associate Device Identifier Shelf Expiration Date Model / Serial / Lot Screw 2.5mm 22mm 1.3mm Slf-Tap Pg Nlckg Implanted:Qty: 2 on 01/12/2019 by Daina Beavers MD at [facility] Left: Wrist [employer] [id number] / / Plate 4 Hl Lopro Fx Ang Wire W Head Rds Implanted:Qty: 1 on 01/12/2019 by Daina Beavers MD at [facility] Left: Wrist [employer] [id number] / / Peg Fx 2.5mm 22mm Ft Lck Screw Tmx Alps Implanted:Qty: 1 on 01/12/2019 by Daina Beavers MD at [facility] Left: Wrist [employer] [id number] / / Peg Fx 2.5mm 24mm Ft Lck Screw Tmx Alps Implanted:Qty: 2 on 01/12/2019 by Daina Beavers MD at [facility] Left: Wrist [employer] FP24 / / Peg Fx 2.5mm 28mm Ft Sm Bone Lck Screw Implanted:Qty: 1 on 01/12/2019 by Daina Beavers MD at [facility] Left: Wrist [employer] [id number] / / Peg Fx 2.5mm 24mm Rds Dist Volr Thrd Implanted:Qty: 1 on 01/12/2019 by Daina Beavers MD at [facility] Left: Wrist [employer] 1311-12-24 4 / / Screw 3.5mm 12mm Cortx Ti Nonster Dvr Implanted:Qty: 1 on 01/12/2019 by Daina Beavers MD at [facility] Left: Wrist [employer] [id number] / / Screw 3.5mm 14mm Cortx Ti Nonster Dvr Implanted:Qty: 1 on 01/12/2019 by Daina Beavers MD at [facility] Left: Wrist [employer] [id number] / / Wire K .045in 6in 2 Troc Pnt Smth Ss Fx Implanted:Qty: 2 on 01/14/2019 by Bon Morgan MD at [facility] Right: Thumb [employer] 10/30/2022 [id number] / / [id number] Explanted Type Area Immigration Associate Device Identifier Shelf Expiration Date Model / Serial / Lot Wire K 1.6mm Ss Fx Nonster Explanted:Qty: 3 on 01/12/2019 by Daina Beavers MD at [facility] Left: Wrist [employer] [id number] / / Screw 2.5mm 24mm 1.3mm Slf-Tap Pg Nlckg Explanted:Qty: 1 on 01/12/2019 by Daina Beavers MD at [facility] Left: Wrist [employer] [id number] / / Procedures Procedure Name Priority Date/Time Associated Diagnosis Comments BASIC METABOLIC PANEL (CALCIUM TOTAL) AM Draw 01/07/2019 2:34 AM MANAGER INTEL from Last 3 Months or Most Recently Relevant to Health Maintenance Results * BASIC METABOLIC PANEL (CALCIUM TOTAL) (01/07/2019 2:34 AM MANAGER INTEL) BUN 10 7 - 26 mg/dL 01/07/2019 3:02 AM [facility] Creatinine 0.8 0.6 - 1.2 mg/dL 01/07/2019 3:02 AM [facility] Sodium 140 136 - 145 mmol/L 01/07/2019 3:02 AM [facility] Potassium 4.0 3.5 - 4.5 mmol/L 01/07/2019 3:02 AM [facility] Chloride 105 98 - 107 mmol/L 01/07/2019 3:02 AM [facility] CO2 24 22 - 29 mmol/L 01/07/2019 3:02 AM [facility] Glucose 112 70 - 115 mg/dL 01/07/2019 3:02 AM [facility] Calcium 9.0 8.4 - 10.2 mg/dL 01/07/2019 3:02 AM [facility] Anion Gap 15 8 - 18 01/07/2019 3:02 AM [facility] BUN/Creatinine Ratio 13 7 - 23 01/07/2019 3:02 AM [facility] Osmolality Calculated 290 270 - 300 mOsm/kg 01/07/2019 3:02 AM [facility] eGFR >60 >60 mL/min/1.7 3 m2 01/07/2019 3:02 AM [facility] Blood BLOOD SPECIMEN / Unknown Lab Venipuncture / Unknown 01/07/2019 2:34 AM MANAGER INTEL 01/07/2019 2:43 AM [facility] Elder Mg MD LAB - CHEMISTRY ORDERABLES Fin al Result [address] [phone] from Last 3 Months or Most Recently Relevant to Health Maintenance Insurance SELF PAY NO INSURANCE Member Subscriber Plan / Payer (Ef fective for All Dates) Name:JaimieTulio Member ID:Not on file Relation to Subscriber:Not on file Name:TULIO ETIENNE Subscriber ID:Not on file Address: [place] [address] Payer ID:Not on file Group ID:Not on file Type:Self Pay Address: [place], [place] SELF PAY NO INSURANCE Member Subscriber Plan / Payer (Ef fective for All Dates) Name:Jaimie Tulio Nogueira Member ID:Not on file Relation to Subscriber:Not on file Name:TULIO ETIENNE Subscriber ID:Not on file Address: [place] [address] Payer ID:Not on file Group ID:Not on file Type:Self Pay Address: [place], [place] * Guarantor: TULIO ETIENNE Account Type Relation to Patient Date of Phone Billing Address Personal/[place] [address] SELF PAY NO INSURANCE Member Subscriber Plan / Payer (Ef fective for All Dates) Name:Jaimie Tulio Nogueira Member ID:Not on file Relation to Subscriber:Not on file Name:TULIO ETIENNE Subscriber ID:Not on file Address: [place] [address] Payer ID:Not on file Group ID:Not on file Type:Self Pay Address: [place], [place] Advance Directives * Full Code (Latest Code Status on File) Date Activated Date Inactivated Comments 01/01/2019 2:30 AM 01/07/2019 7:10 PM Care Teams Transportation Consultant Relationship Specialty Start Date End Date Laxmi Golden MD [address] [place] [address] PCP - General Family Medicine 12/31/18
--- OUTSIDE RECORDS SUMMARY | 2024-11-25 02:23 | XMS_ITS | Encounter Summary ---
Author Organization [facility] Address [address] [facility] [place] [address] Care Team Providers Care Photo Equipment Technician Name Role Phone Laxmi Golden MD Primary Care Provider U martha Encounter Details Date Type Department Care Team (Late st Contact Info) Description 01/01/2019 Ophth Exam [facility] [address] [place] [address] Duncan De La Cruz MD [address] [facility] [address] DEPT OF OPHTHALMOLOGY [place], [place] Social History Tobacco Use Types Packs/Day Years Used Date Smoking Tobacco: Never Assessed Sex and Gender Information Value Date Recorded Sex Assigned at Not on file 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
[2024-11-25] MEDS: LACTATED RINGERS 1,000 ML 30 ML IV CONT ×2 (06:39→09:08)
[2024-11-25] MEDS: ACETAMINOPHEN 500 MG TABLET 1000 MG PO (06:41)
[2024-11-25] MEDS: KETOROLAC 15 MG/ML VIAL (*BKC) IV PUSH (06:42)
--- NOTE | 2024-11-25 06:45 | WPDANESEPPF ---
Anes - Initial Pre Proc Eval Procedure: Operation Date: 11/25/24 07:30 Proposed Procedures p Laparoscopic Umbilical Hernia Repair with Mesh, Davinci Assisted - Jonny Mckeon DO Date/Time: 11/25/24 06:45 Surgeon: Jonny Mckeon DO Pre Op Diagnosis: Umbilical Hernia (3cm) Patient Data Age: 54 Gender: M Height: 1.7 m Weight: 99.9 kg Allergies Allergy/AdvReac Type Severity Reaction Status Date / Time No Known Allergies Allergy Verified 11/25/24 06:19 Home Medications ?Medication ?Instructions ?Recorded ?Confirmed ?Type clobetasol 0.05 % scalp solution 1 applic topical BID rash 12/07/23 11/19/24 History sildenafil 50 mg tablet (Viagra) 50 mg PO DAILY sexual activity 12/07/23 11/19/24 History rosuvastatin 20 mg tablet See Rx Instructions .Route 07/17/24 11/25/24 Rx .COMPLEX #90 tabs empagliflozin 25 mg tablet See Rx Instructions .Route 07/22/24 11/25/24 Rx (Jardiance) .COMPLEX #90 tabs hydrochlorothiazide 12.5 mg tablet See Rx Instructions .Route 08/24/24 11/25/24 Rx .COMPLEX #90 tabs lisinopril 20 mg tablet See Rx Instructions .Route 08/24/24 11/25/24 Rx .COMPLEX #90 tabs metformin 500 mg tablet See Rx Instructions .Route 10/12/24 11/25/24 Rx .COMPLEX #180 tabs multivitamin 1 tablet PO DAILY 11/19/24 11/25/24 History Laboratory Tests 11/25/24 06:38 POC Capillary Glucose 157 H mg/dl (65-105) Patient hx anesthesia problems: none Family hx anesthesia problems: none Results Review: All pre-operative results and documents have been reviewed as part of the pre-operative evaluation. [facility], [facility] Past Medical History Medical History Adenomatous colon polyp New onset type 2 diabetes mellitus Episodic tobacco abuse Benign essential HTN Tobacco abuse Major depressive disorder, recurrent severe without psychotic features ALBERTO (generalized anxiety disorder) Fracture of phalanx of right thumb with routine healing Closed fracture of forearm with routine healing Fracture of face bones due to fall with routine healing Alcohol abuse Mixed hyperlipidemia Family History Family History Mother Family history of kidney disease Family history of chronic obstructive pulmonary disease Family history of diabetes mellitus in first degree relative Father Family history of lung cancer Other Diabetes mellitus Hypertension Social History Social History Social History: Smoking packs per day: 0.25 Smoking cigarettes per day: 5.0 Years smoked: 20 Smoking pack-years: 5.00 Smoking status: Current every day smoker Tobacco type: cigarettes Second hand tobacco smoke exposure: No Smoking end date: 07/28/22 Alcohol intake: current Drinks per week: 14 Alcohol use details: occasional beer Substance use: never Substance use type: does not use Do You Feel Safe in your Home?: Yes Lack of Transportation: No Lack of Food: Never True Current Housing: I Have Housing Concerned About Future Housing: No Difficulty Paying Gas/Electric Bills: No Difficulty Paying for Meds: No Currently Unemployed: No Education: Master's Degree or Higher Difficulty w/ Childcare or Family Care: No Living arrangements: with family Occupation/Education: occupation Additional occupation/education comments: [employer] Gender identity (if verbalized by the patient): Male Sexual Orientation (if Verbalized by the Patient): Straight or Heterosexual Spiritual care concerns: No Anes - Eval Final PreProcedure Day of Procedure 11/25/24 06:45 Patient weight: obese Heart: regular rate and rhythm Lungs: clear to auscultation Airway: Mallampati scale class II Neurological: alert and oriented Last oral intake: >/= 8 hours ASA classification: III Emergent: no Anesthetic plan: proceed Anesthesia type and monitoring: general GIVS and standard monitoring Results Review: All pre-operative results and documents have been reviewed as part of the pre-operative evaluation. Informed Consent: The patient's anesthetic plan and its attendant risks and benefits were discussed with the patient/family/POA. Questions were solicited and answers provided to the satisfaction of the patient/family/POA.
--- NOTE | 2024-11-25 07:11 | PM.IMHP ---
H&P: HPI History of Present Illness Date/Time: 11/25/24 07:11 Chief Complaint: Umbilical hernia Narrative: 54 yo man presents for umbilical hernia repair. He reports no changes since last seen in office. Review of Systems Review of Systems: All systems reviewed & are unremarkable except as noted in HPI and below Constitutional: Constitutional: Denies chills, Denies fever(s), Denies headache(s) and Denies weight loss Eyes: Eyes: Denies change in vision ENT: Denies dizziness, Denies headache(s), Denies neck mass and Denies throat swelling Cardiovascular: Cardiovascular: Denies chest pain, Denies lightheadedness and Denies dyspnea Respiratory: Respiratory: Denies cough, Denies dyspnea and Denies wheezing Gastrointestinal: Gastrointestinal: Denies abdominal pain, Denies change in bowel habits, Denies nausea and Denies vomiting Genitourinary: Genitourinary: Denies hematuria and Denies dysuria Musculoskeletal: Musculoskeletal: Reports as per HPI Integumentary/Breasts: Skin/Breast: Reports as per HPI Neurologic: Denies dizziness and Denies headache(s) Allergic/Immunologic: Allergic/Immunologic: Denies throat swelling and Denies wheezing PMFSH Past Medical History Medical History Adenomatous colon polyp New onset type 2 diabetes mellitus Episodic tobacco abuse Benign essential HTN Tobacco abuse Major depressive disorder, recurrent severe without psychotic features ALBERTO (generalized anxiety disorder) Fracture of phalanx of right thumb with routine healing Closed fracture of forearm with routine healing Fracture of face bones due to fall with routine healing Alcohol abuse Mixed hyperlipidemia Family History Family History Mother Family history of kidney disease Family history of chronic obstructive pulmonary disease Family history of diabetes mellitus in first degree relative Father Family history of lung cancer Other Diabetes mellitus Hypertension Social History Social History Social History: Smoking packs per day: 0.25 Smoking cigarettes per day: 5.0 Years smoked: 20 Smoking pack-years: 5.00 Smoking status: Current every day smoker Tobacco type: cigarettes Second hand tobacco smoke exposure: No Smoking end date: 07/28/22 Alcohol intake: current Drinks per week: 14 Alcohol use details: occasional beer Substance use: never Substance use type: does not use Do You Feel Safe in your Home?: Yes Lack of Transportation: No Lack of Food: Never True Current Housing: I Have Housing Concerned About Future Housing: No Difficulty Paying Gas/Electric Bills: No Difficulty Paying for Meds: No Currently Unemployed: No Education: Master's Degree or Higher Difficulty w/ Childcare or Family Care: No Living arrangements: with family Occupation/Education: occupation Additional occupation/education comments: [employer] Gender identity (if verbalized by the patient): Male Sexual Orientation (if Verbalized by the Patient): Straight or Heterosexual Spiritual care concerns: No Meds Home Medications and Allergies Home Medications ?Medication ?Instructions ?Recorded ?Confirmed ?Type clobetasol 0.05 % scalp solution 1 applic topical BID rash 12/07/23 11/19/24 History sildenafil 50 mg tablet (Viagra) 50 mg PO DAILY sexual activity 12/07/23 11/19/24 History rosuvastatin 20 mg tablet See Rx Instructions .Route 07/17/24 11/25/24 Rx .COMPLEX #90 tabs empagliflozin 25 mg tablet See Rx Instructions .Route 07/22/24 11/25/24 Rx (Jardiance) .COMPLEX #90 tabs hydrochlorothiazide 12.5 mg tablet See Rx Instructions .Route 08/24/24 11/25/24 Rx .COMPLEX #90 tabs lisinopril 20 mg tablet See Rx Instructions .Route 08/24/24 11/25/24 Rx .COMPLEX #90 tabs metformin 500 mg tablet See Rx Instructions .Route 10/12/24 11/25/24 Rx .COMPLEX #180 tabs multivitamin 1 tablet PO DAILY 11/19/24 11/25/24 History Allergies Allergy/AdvReac Type Severity Reaction Status Date / Time No Known Allergies Allergy Verified 11/25/24 06:19 Vital Signs Vital Signs - 24 hr 11/25/24 06:05 Temperature 97.3 F L Pulse Rate 78 Respiratory Rate 18 Blood Pressure 131/85 Pulse Oximetry 97 Oxygen Delivery Room Air Exam Const: General: no acute distress and alert Orientation/consciousness: patient oriented x3 HENMT: Head: normocephalic and atraumatic Ears: hearing grossly normal bilaterally Face/Nose/Sinus: Normal nares present Mouth: Yes Normal oral and palatal mucosa present Eyes: Periorbital: periorbital findings normal Sclera: sclerae normal EOM: EOMs intact bilaterally Neck: Neck: normal visual inspection, no lymphadenopathy and trachea midline Chest: Chest palpation & inspection: normal inspection of the chest Resp: Effort & Inspection: normal respiratory effort Auscultation: clear to auscultation bilaterally Cardio: Jugular venous distension: no JVD Rate: regular rate Rhythm: regular rhythm Heart sounds: S1 normal heart sound present and S2 normal heart sound present Peripheral pulses: Peripheral pulses 2+ throughout GI: Inspection: normal to inspection GI Palp: Yes Soft to palpation, No Tenderness to palpation present (GI), No Guarding due to palpation present (GI), Yes Hernia present umbilical 3-10 cm and No Rebound tenderness present Percussion: Yes normal to percussion Auscultation: normal bowel sounds : General: Yes no CVA tenderness Back/Spine/Pelvis: Back: no CVA tenderness Neuro: General: patient oriented x3, no focal motor deficits and CN's II-XI intact bilaterally Cognition (Neuro): normal cognition Speech: normal speech Motor exam (neuro): 5/5 motor strength present throughout Extrem: General: capillary refill normal and no clubbing, cyanosis or edema Assessment and Plan Assessment and plan (1) Umbilical hernia: Qualifiers: Obstruction and gangrene presence: without obstruction or gangrene Qualified Code(s): K42.9 - Umbilical hernia without obstruction or gangrene Code(s): K42.9 - Umbilical hernia without obstruction or gangrene Status: Acute Assessment and Plan: I have recommended laparoscopic umbilical hernia repair with mesh, da Carmen assisted. I have discussed the procedure, risks, benefits, and alternatives with the patient. All questions answered. No changes since last seen in office.
--- NOTE | 2024-11-25 07:13 | WPDHPUPDATE1 ---
History and Physical Update Update Date/Time: 11/25/24 07:13 History and Physical has been reviewed, including an updated exam of the patient. There are NO changes in the patient's condition. Risks, benefits, and alternatives have been discussed and questions answered. Patient agrees to proceed with procedure.
[2024-11-25] MEDS: ceFAZolin 2 GM in SODIUM CHLORIDE 0.9% IV 50 ML 100 ML IVPB (07:22)
[2024-11-25] MEDS: BUPIVACAINE/EPINEPHRINE 0.5% 50 ML VIAL 30 ML INFILTRATE (07:43)
--- NOTE | 2024-11-25 09:00 | P.OP_ITS ---
Procedure Note - Detailed Date of Procedure 11/25/24 Pre-op Diagnosis Umbilical Hernia Post-op Diagnosis Same (3 cm umbilical hernia) Procedure Performed Laparoscopic 3 cm umbilical hernia repair with mesh, da Carmen assisted Surgeon Jonny Mckeon DO Anesthesia General and Local (0.5% bupivacaine with epinephrine) Indications This is a 54-year-old man who presented with an umbilical bulge that was causing some discomfort. He had noticed this several years ago but it was not causing any significant symptoms at that time. Over the past few months he has noticed more symptoms with that. He was found to have a reducible umbilical hernia on exam. Discussions were made with the patient about treatment options and decision was made to proceed with robotic assisted laparoscopic umbilical hernia repair with mesh. Findings Robotic assisted laparoscopic 3 cm umbilical hernia repair with mesh was performed. The patient was found to have a 3 cm umbilical hernia containing some omentum and preperitoneal fat. The omentum reduced easily once pneumoperitoneum was created. A robotic transabdominal preperitoneal approach was utilized for repair. Once a wide enough preperitoneal pocket was created, the hernia was then repaired using 0 Stratafix running absorbable suture and a 10 cm x 15 cm Bard soft mesh was placed. No specimens were obtained for pathology. Description of Procedure Procedure as well as risks, benefits, and alternatives were discussed with the patient. Written consent was obtained and placed in chart prior to procedure. Patient was brought back to surgical suite. He was placed supine on operating table. Time-out was done to confirm patient and procedure. He was then intubated by the anesthesia department. A bump was placed under his left hip, and the bed was flexed slightly to extend the space between his costal margin and iliac crest. His abdomen was prepped and draped in sterile fashion using chlorhexidine prep. A 5 millimeter incision was made in the left upper quadrant, and a 5 millimeter Optiview trocar was advanced through the abdominal layers under direct visualization. Once inside the abdominal cavity, carbon dioxide insufflation was used to create a pneumoperitoneum. His abdomen was inspected. An 8 millimeter incision was made in the left lower quadrant, and an 8 millimeter robotic trocar was placed under direct visualization. Another 8 millimeter incision was made in the left lateral abdomen, and an 8 millimeter robotic trocar was placed under direct visualization. 0.5% bupivacaine with epinephrine was infiltrated around each port site. The 5 millimeter port was removed, and an 8 mm robotic trocar was placed under direct visualization. The robotic arms were brought up to the patient's bedside and secured to the ports. The camera and instruments were inserted, and I then moved over to the robotic console and took control of the camera and instruments. After careful thorough inspection of the abdominal cavity, I began my disse ction at the hernia. A preperitoneal plane was started in the left upper quadrant using scissors with electrocautery. This was carefully dissected along the left lateral abdomen into the left lower quadrant and then medially towards the hernia defect. The hernia sac was then reduced and then the preperitoneal plane was dissected further to the right lateral abdomen wide enough to allow for mesh placement. I then measured the hernia size. The hernia measured 3 cm. The fascia was closed using an 0-Stratafix running suture in a vertical fashion. A 15 cm x 10 cm Bard soft mesh was then placed within the preperitoneal pocket. This was oriented vertically with the mesh centered on the hernia defect. The mesh was then secured at the center and 4 corners using 3-0 Vicryl simple interrupted sutures. The peritoneum was then closed over the mesh using 3 0 V lock running absorbable suture. The repair was inspected, and one final inspection was made around the abdominal cavity. The robotic instruments were then removed, and the robotic arms were disengaged from the trocars. The ports were then removed under direct visualization, the camera was removed, and the pneumoperitoneum was released. The skin of the incisions was then approximated using 4-0 Monocryl subcuticular suture. Exofin glue was then applied on top. The patient was then awakened from anesthesia, extubated, and transferred to recovery. Implants Bard soft mesh 15 cm x 10 cm Estimated Blood Loss 5 Complications No immediate complications Condition Stable Disposition Same day [facility] Billing Surgery - Charge Forward: Surgery Billing
[2024-11-25] MEDS: oxyCODONE HCL (*CRX) 5 MG TAB IR PO (10:22)
== END 2024-11-25 10:48 | disposition home or self-care (01) ==
PROVIDERS: PCP Family Medicine; Visit Provider Surgery
PROC: (CPT 49593; principal; 2024-11-25 07:30)
DX: K42.9 Umbilical hernia without obstruction or gangrene (principal); I10 Essential (primary) hypertension; E11.9 Type 2 diabetes mellitus without complications; E78.2 Mixed hyperlipidemia; F33.3 Major depressive disorder, recurrent, severe with psychotic symptoms; F41.9 Anxiety disorder, unspecified; F17.210 Nicotine dependence, cigarettes, uncomplicated; E66.9 Obesity, unspecified; Z68.34 Body mass index [BMI] 34.0-34.9, adult; Z79.899 Other long term (current) drug therapy; Z79.84 Long term (current) use of oral hypoglycemic drugs; Z86.0100 Personal history of colon polyps, unspecified; Z80.1 Family history of malignant neoplasm of trachea, bronchus and lung
CPT/HCPCS: 49593; S2900; 82948; J0690; A9270; C1781; J1885; J2250; J2405; J2704; J3010; J7120